=== PATIENT | male | born 1965 | race Caucasian/White ===

== ENCOUNTER → 2016-10-30 | Outpatient (CLI) | payer OTHER ==
--- NOTE | 2016-10-30 16:48 | CONS ---
CONSULTATION REASON FOR EVALUATION: Obstructive sleep apnea. This is a 51-year-old male patient with loud snoring, witnessed apneas, excessive fatigue and sleepiness during the day, chronic hypersomnia and increased risk of falling asleep while driving his vehicle. The patient drives back and forth to [place] due to work, and at times he gets very drowsy; on a few occasions he has to pull off the road due to concerns about falling asleep. He sleeps on his side, unable to sleep on his back. He has gained a significant amount of weight over the years and is morbidly obese. No sleepwalking or sleeptalking. No parasomnias. No sleep paralysis. No hallucinations. No cataplexy. PAST MEDICAL HISTORY: 1. Morbid obesity. 2. Hypertension. 3. Gout. 4. Obesity. PAST SURGICAL HISTORY: Past surgical history includes: 1. Tonsillectomy. 2. Repair of a deviated nasal septum. DRUG ALLERGIES: DOXYCYCLINE. OUTPATIENT MEDICATION: Outpatient medications include: 1. Lisinopril. 2. Allopurinol. SOCIAL HISTORY: Nonsmoker. No history of alcoholism. No history of IV drugs. FAMILY HISTORY: Two of his siblings have obstructive sleep apnea, and they are on treatment. REVIEW OF SYSTEMS: CONSTITUTIONAL: Obesity with significant amount of weight gained; 60 pounds over the past 5 years. HEENT: Loud snoring along with oral breathing rather than nasal breathing. He has had previous sinus surgery. CARDIOVASCULAR: Negative for any angina or palpitations. PULMONARY: No cough. No sputum production. He has mild chronic exertional dyspnea. GI: Negative for nausea, vomiting, abdominal pain or GI bleed. is negative for dysuria, frequency, urgency. Musculoskeletal is positive for degenerative arthritis and gout. Skin is negative for any rashes or ulcers or wounds. Psych is negative for anxiety or bipolar disorder. Rheumatologic is negative. Hematologic negative for anemia or any blood loss. Sleep is negative for any sleepwalking or sleeptalking. No grinding of the teeth. No nocturnal arousals due to gasping for air or any choking sensation. No nocturnal heartburn. No nightmares. PHYSICAL EXAMINATION: BP is 156/96, pulse 62, respirations 18, temperature 98.0, saturation 93% on room air. Neck size 20-1/2 inches. BMI 55.2. Actual weight is 358.2. GENERAL APPEARANCE: Obese, calm, comfortable. HEENT: Short neck. Mallampati class 4. No No goiter or neck masses. Head is atraumatic, normocephalic. LUNGS: Diminished breath sounds bilaterally; otherwise clear. HEART: Sounds are regular rate and rhythm. Normal S1, S2. No S3. No S4. No murmurs. ABDOMEN: Soft, nontender. No organomegaly. No direct tenderness or rebound tenderness or guarding. EXTREMITIES: No edema. No cyanosis or clubbing. SKIN: Negative for any ulcers, wounds or cellulitis. Neuro is alert and oriented x3. No focal neurological deficit. MUSCULOSKELETAL: Negative for any joint deformities or kyphoscoliosis. IMPRESSION: 1. Obstructive sleep apnea clinically suspected. 2. Hypersomnia, chronic, with an [place] score of 9. 3. Obesity with a BMI 55.2. 4. Hypertension. 5. Gout. PLAN: 1. Very high suspicion for obstructive sleep apnea. Based on this, will proceed with a screening polysomnogram as soon as possible. 2. I asked the patient to sleep in a sidewise body position. 3. Extend sleep hours to an average of 7-8 hours of sleep every night. 4. Implement good sleep hygiene measures. 5. Limit long driving until the diagnosis of sleep apnea is established and the patient is treated accordingly. MMODL / IJN: [id number] /
== END ==
LOC: SLEEP 13:24
PROVIDERS: ATTEND Internal Medicine Critical Care Medicine
DX: G47.33 Obstructive sleep apnea (adult) (pediatric) (principal); G47.10 Hypersomnia, unspecified; E66.9 Obesity, unspecified; I10 Essential (primary) hypertension; M10.9 Gout, unspecified; Z68.43 Body mass index [BMI] 50.0-59.9, adult; Z79.899 Other long term (current) drug therapy; Z88.1 Allergy status to other antibiotic agents
CPT/HCPCS: 99211

== ENCOUNTER → 2017-03-05 | Outpatient (CLI) | payer OTHER ==
--- NOTE | 2017-03-05 17:25 | PN ---
PROGRESS NOTE This is a 52-year-old male patient coming in for a compliance check regarding obstructive sleep apnea. The patient was diagnosed having severe HERON with an AHI of 100 and currently he is using CPAP therapy at a pressure of 15 cm of water with a C- flex of 3. He is using an AirFit F20 full-face mask. His main complaint is that the headgear is causing some pain on his neck, yet for the most part he is doing very well. He is averaging around 7 to 7.2 hours of CPAP use every night and his CPAP compliancy for more than 4 hours is 25/30 days over the past 30 days. His AHI while on treatment is down to 8.6. He has no specific complaints. He is benefitting from the treatment. He is waking up much more alert and awake and he seems to be more focused towards weight loss. His weight is stable at 371. Temperature 97.8, pulse 62, respirations 16. Weight is 371. Saturation 96% on room air. BP is 151/87. GENERAL APPEARANCE: Calm, comfortable. No acute distress. Head is atraumatic, normocephalic. Neck is supple. Mallampati class IV. There is no goiter or neck mass. LUNGS: Clear to auscultation. Heart sounds are regular rate and rhythm. Normal S1, S2. No S3. No S4. No murmurs. Abdomen is soft, nontender. No organomegaly. EXTREMITIES: No edema. No cyanosis or clubbing. NEUROLOGIC: The patient is alert and oriented x3. There is a focal neurological deficit. PSYCHIATRIC: No anxiety or depression. IMPRESSION: 1. Symptomatic severe obstructive sleep apnea with an AHI of 100. The patient is being treated successfully with CPAP at a pressure of 15 cm of water. The patient is benefitting from the treatment and the patient is compliant. 2. Morbid obesity with a body mass index of 56. 3. Chronic hypersomnia, improving with CPAP therapy. 4. Gout. 5. Hypertension. PLAN: 1. Continue CPAP therapy at the same level of pressure, which is 15 cm of water. 2. The patient will be continuing the AirFit F20 full-face mask. I gave him another option, which will be the Lilo View large-sized full-face mask. 3. Encourage weight loss. 4. Implement good sleep hygiene measures. 5. See me back in the sleep center in a year's time, earlier if needed. His treatment is successful for the time being. MMODL / IJN: [id number] /
== END | disposition home or self-care (01) ==
LOC: SLEEP 14:07
PROVIDERS: ATTEND Internal Medicine Critical Care Medicine
DX: G47.33 Obstructive sleep apnea (adult) (pediatric) (principal); E66.01 Morbid (severe) obesity due to excess calories; M10.9 Gout, unspecified; I10 Essential (primary) hypertension; Z99.89 Dependence on other enabling machines and devices; Z68.43 Body mass index [BMI] 50.0-59.9, adult

== ENCOUNTER → 2018-04-15 | Outpatient (CLI) | payer OTHER ==
--- NOTE | 2018-04-15 12:05 | PN ---
PROGRESS NOTE A 53-year-old male patient coming in for annual check regarding his HERON. The patient was diagnosed having severe HERON with an AHI of 100 and he is on a CPAP pressure of 15 cm of water. Over the past 1 and he has maintained his same body weight which is around 371. No recent weight gain or weight loss. Three hundred seventy-one ohms are 371. No recent weight gain or weight loss. He has been kept on a CPAP pressure of 15 and the pressure has been unchanged for almost a year. He is still benefitting from the treatment, he wears CPAP every night. He wakes up refreshed and alert during the day. Based on the compliance data, it is obvious the patient has been using a CPAP every night without any interruption. His CPAP use for more than 4 hours is 100%. His AHI is down to 1.4 and his leak factor is 26 L/minute. Average CPAP is around 8.3 hours per night. No headaches, no nasal congestion. He is using an Lilo View full- face mask. No throat irritation, nose irritation, no skin issues locally from the mask. REVIEW OF SYSTEMS: A 12-point review of system was done and positive findings are mentioned in history of present illness. His weight has been stable. No hypersomnia, no sleepiness, no falling asleep while talking to other individual or driving. No angina, no palpitations. No shortness of breath. No chest pain. Kiron score is at 4. PHYSICAL EXAMINATION: BP 148/73, pulse 69, respirations 16, temperature 97.9, saturation 93% on room air. Height is 5, 8, weight is around 73, Kiron score is 4, BMI 56.3. GENERAL APPEARANCE: Calm, comfortable. HEAD: Atraumatic, normocephalic. NECK: Supple. No JVD. No goiter or neck masses. Mallampati class IV. LUNGS: Clear to auscultation. HEART: Sounds regular rate and rhythm. Normal S1, S2. No S3. No murmurs. ABDOMEN: Soft, nontender. No organomegaly. EXTREMITIES: No edema. No cyanosis or clubbing. NEUROLOGIC: Alert and oriented x3. No focal neurological deficits. Psychiatrically, negative for anxiety or depression. IMPRESSION: 1. Severe symptomatic obstructive sleep apnea with an AHI of 100, currently on CPAP pressure of 15 cm of water. 2. Hypersomnia, recovered. 3. Obesity with a body mass index of 56, weight is unchanged. 4. Gout. 5. Hypertension. PLAN: 1. Encourage weight loss. 2. Drop CPAP pressure to 14 cm of water. 3. Offer this patient a Dream Wear full-face mask, medium size as an alternative mask for his Lilo view. 4. Compliance data was checked, numbers are looking good. The patient is responding to treatment. Will see him back in a year's time and follow up earlier, if needed. MMODL / IJN: [id number] /
== END ==
LOC: SLEEP 10:04
PROVIDERS: ATTEND Internal Medicine Critical Care Medicine
DX: G47.33 Obstructive sleep apnea (adult) (pediatric) (principal); E66.9 Obesity, unspecified; M10.9 Gout, unspecified; I10 Essential (primary) hypertension; Z99.89 Dependence on other enabling machines and devices

== ENCOUNTER 2018-05-26 15:33 | Emergency (ER) | payer OTHER ==
[2018-05-26 15:40] VITALS: BP 121/72; PULSE 66; RESP 18; TEMP 98
[2018-05-26] MEDS ORDERED: ACET/COD 300 MG/30 MG STARTER PACK 6 TAB BTL PO STA (15:57)
[2018-05-26] MEDS ORDERED: HYDROcodone/APAP 7.5-325MG 1 EACH TAB PO ONE (15:57)
--- NOTE | 2018-05-26 16:23 | XR ---
EXAMINATION TYPE: XR knee 4V RT DATE OF EXAM: 05/26/2018 CLINICAL HISTORY: Pain from fall injury. TECHNIQUE: Three views of the right knee are obtained. Fourth sunrise view was acquired. COMPARISON: Right knee x-ray February 15, 2015. FINDINGS: There is no acute fracture/dislocation evident in right knee. Patellar articulation is wit hin normal limits on sunrise view. Mild to moderate narrowing medial tibiofemoral and patellofemoral compartments is redemonstrated. There is persistent spurring from anterior superior and anterior infe rior patella. Overlying clothing material is present distal femoral level. IMPRESSION: There is no acute fracture or dislocation in the right knee.
--- NOTE | 2018-05-26 16:31 | ED ---
General Adult HPI - General Chief complaint: Extremity Injury, Lower Stated complaint: Knee Injury Time Seen by Provider: 05/26/18 15:41 Source: patient, RN notes reviewed, old records reviewed Mode of arrival: ambulatory Limitations: no limitations - History of Present Illness Initial comments: 53-year-old male patient passed no history of gout presents to ED with right knee injury. Patient force that yesterday he was walking when he slipped on a wet floor, patient reports he caught himself in the fall. Patient at the time did not express any pain. However approximately one hour later patient began experiencing pain in the lateral aspect of his right knee. Patient did not feel any pop or any pain at the initial time of perceived injury. Patient poorly now has pain with walking, again this pain is at the lateral aspect his right knee and the LCL region. Patient denies any other complaints today. Patient reportedly made contact with orthopedic follow-up, however is unable to be seen until tomorrow, states that he is presenting to ER primary today for pain control. Systemic: Pt denies fatigue, myalgia, fever/chills, rash. Pt denies weakness, night sweats, weight loss. Neuro: Pt denies headache, visual disturbances, syncope or pre-syncope. HEENT: Pt denies ocular discharge or irritation, otalgia, rhinorrhea, pharyngitis or notable lymphadenopathy. Cardiopulmonary: Pt denies chest pain, SOB, heart palpitations, dyspnea on exertion. Abdominal/GI: Pt denies abdominal pain, n/v/d. : Pt denies dysuria, burning w/ urination, frequency/urgency. Denies new onset urinary or bowel incontinence. MSK: Pt denies myalgia, loss of strength or function in extremities. Neuro: Pt denies new onset weakness, paresthesias. - Related Data Home Medications Medication Instructions Recorded Confirmed Indomethacin [Indocin] 50 mg PO DIRECTED 02/15/15 02/15/15 Lisinopril-Hctz 20-25 mg 1 tab PO DAILY 02/15/15 02/15/15 [Zestoretic 20-25] Multivitamin [Men's Multi-Vitamin] 1 each PO DAILY 02/15/15 02/15/15 Psyllium Husk 100% [Metamucil] 6 gm PO DAILY 02/15/15 02/15/15 Previous Rx's Medication Instructions Recorded HYDROcodone/APAP 5-325MG [[place] 5] 1 each PO Q4HR PRN #20 tab 02/15/15 predniSONE 50 mg PO DAILY #5 tab 02/15/15 Allergies Allergy/AdvReac Type Severity Reaction Status Date / Time doxycycline Allergy Anaphylaxis Verified 05/26/18 15:40 Review of Systems ROS Statement: Those systems with pertinent positive or pertinent negative responses have been documented in the HPI. ROS Other: All systems not noted in ROS Statement are negative. Past Medical History Past Medical History: Hypertension Additional Past Medical History / Comment(s): gout History of Any Multi-Drug Resistant Organisms: None Reported Past Surgical History: Tonsillectomy Additional Past Surgical History / Comment(s): eye sx, deviated septum repair Past Psychological History: No Psychological Hx Reported Smoking Status: Never smoker Past Alcohol Use History: Occasional Past Drug Use History: None Reported General Exam - General Exam Comments Initial Comments: Constitutional: NAD, AOX3, Pt has pleasant affect. HEENT: NC/AT, trachea midline, neck supple, no lymphadenopathy. Posterior pharynx non erythematous, without exudates. External ears appear normal, without discharge. Mucous membranes moist. Eyes PERRLA, EOM intact. There is no scleral icterus. No pallor noted. Cardiopulmonary: RRR, no murmurs, rubs or gallops, no JVD noted. Lungs CTAB in anterior and posterior nj. No peripheral edema. Abdominal exam: Abdomen soft and non-distended. Abdomen non-tender to palpation in all 4 quadrants. Bowel sounds active in LLQ. No hepatosplenomegaly. No ecchymosis Neuro: CN II-XII grossly intact. No nuchal rigidity. MSK: Right knee nontender to palpation. Mild amount of edema noted. No ecchymoses. Full active range of motion. Distal pulses intact and equal. No posterior calf tenderness bilaterally, homans sign negative bilaterally. Posterior tibialis and radial pulse +2 bilaterally. Sensation intact in upper and lower extremities. Full active ROM in upper and lower extremities, 5/5 stregnth. Limitations: no limitations Course Vital Signs 05/26/18 15:37 Temperature 98.0 F Pulse Rate 66 Respiratory 18 Rate Blood Pressure 121/72 O2 Sat by Pulse 100 Oximetry Medical Decision Making - Medical Decision Making 53-year-old male patient passed no history of gout presents to ED with right knee injury. Patient force that yesterday he was walking when he slipped on a wet floor, patient reports he caught himself in the fall. Patient at the time did not express any pain. However approximately one hour later patient began experiencing pain in the lateral aspect of his right knee. Patient did not feel any pop or any pain at the initial time of perceived injury. Patient poorly now has pain with walking, again this pain is at the lateral aspect his right knee and the LCL region. Patient denies any other complaints today. Patient reportedly made contact with orthopedic follow-up, however is unable to be seen until tomorrow, states that he is presenting to ER primary today for pain control. Patient vital signs stable, afebrile. Physical exam displayed: Right knee nontender to palpation. Mild amount of edema noted. No ecchymoses. Full active range of motion. Distal pulses intact and equal. Plain film of right knee didn't display any acute process. Patient pain control in the ER. Patient placed in the immobilizer. Patient follow up with orthopedic consult tomorrow. Patient not to bear weight on knee until follow-up. Patient to return to ER if condition worsens. Patient not driving home. Case discussed with Dr. King. Disposition Clinical Impression: Knee sprain Disposition: HOME SELF-CARE Condition: Stable Instructions (If sedation given, give patient instructions): Knee Sprain (ED) Additional Instructions: Patient to adhere to previously discussed treatment plan and will take medication(s) as directed. Patient to follow up with PCP in 1-2 days. Patient to return to ED if symptoms do not improve. Please follow-up with orthopedic consult tomorrow. Dizziness bear weight on right knee until orthopedic follow-up. Please use crutches. They do not drive if taking pain medication. Is patient prescribed a controlled substance at d/c from ED?: No Referrals: Jose Luis Garcia MD [Primary Care Provider] - 1-2 days Ronnie Valdes MD [Medical Doctor] - 1-2 days
== END 2018-05-26 16:49 | disposition home or self-care (01) ==
LOC: EC 15:33
DX: S83.91XA Sprain of unspecified site of right knee, initial encounter (principal); I10 Essential (primary) hypertension; Z79.899 Other long term (current) drug therapy; Z88.1 Allergy status to other antibiotic agents; W01.0XXA Fall on same level from slipping, tripping and stumbling without subsequent striking against object, initial encounter; Y93.01 Activity, walking, marching and hiking
CPT/HCPCS: 73564; 99284; L1830

== ENCOUNTER → 2018-05-28 | Outpatient (CLI) | payer OTHER ==
--- NOTE | 2018-05-29 07:24 | MR ---
EXAMINATION TYPE: MR knee RT wo con DATE OF EXAM: 05/28/2018 COMPARISON: Right knee x-ray from 2 days ago. HISTORY: Rt knee pain, S/P fall injury. Evaluate medial meniscal tear and effusion per order. TECHNIQUE: Multiplanar, multisequence images of the knee is performed without IV contrast. FINDINGS: Exam slightly suboptimal secondary to patient's large body habitus. MEDIAL MENISCUS: Anterior horn is intact without tear. Oblique signal posterior horn extends to infer ior meniscal surface sagittal image 8 LATERAL MENISCUS: Anterior and posterior horns are intact without tear. CRUCIATE LIGAMENTS: The anterior and posterior cruciate ligaments are intact and unremarkable. COLLATERAL LIGAMENTS: The medial collateral ligament and lateral collateral ligament complex are inta ct and unremarkable. EXTENSOR MECHANISM: Visualized quadriceps and patellar tendons are intact. Spurring from the anterior superior patella at distal quadriceps tendon attachment is seen. EFFUSION: There is moderate to large suprapatellar joint effusion suggestion of synovitis. POPLITEAL CYST: No popliteal/rosenbaum cyst. TRICOMPARTMENT SPACES: Mild to moderate narrowing patellofemoral and medial tibiofemoral compartments is seen. No significant spurring is present. CARTILAGE: There is some cartilaginous loss medial tibiofemoral compartment. No significant chondroma lacia patella. BONE MARROW SIGNAL: No focal abnormal marrow signal is appreciated. OTHER: No additional significant abnormality is appreciated. IMPRESSION: 1. Oblique full-thickness tear posterior horn of medial meniscus. 2. Mild to moderate tricompartment degenerative changes most prominent medial tibiofemoral and patell ofemoral compartments. 3. Moderate to large suprapatellar joint effusion with suggestion of synovitis.
== END ==
LOC: RADMRIMAIN 21:35
PROVIDERS: ATTEND Orthopaedic Surgery Sports Medicine
DX: S83.241A Other tear of medial meniscus, current injury, right knee, initial encounter (principal); M17.11 Unilateral primary osteoarthritis, right knee

== ENCOUNTER 2018-06-18 11:22 | Day surgery (SDC) | payer OTHER ==
[2018-06-16 15:45] VITALS: BMI 51.7
[~2018-06-18 11:22] MED LIST: DEXAMETHASONE SOD PHOSPHATE 10 MG/ML 1 ML VIAL IV ONE; HYDROmorphone 0.5 MG/0.5 ML SYRINGE IVP PRN; LACTATED RINGERS 1,000 ML IV SCH; LIDOCAINE 1% 20 ML VIAL (10MG/ML) FOR IV START INTRADERMA PRN; MIDAZOLAM (PF) 2 MG/2 ML VIAL IV PRN; ONDANSETRON 4 MG/2 ML VIAL IVP ONE; SCOPOLAMINE 1.5MG/72HR PATCH TRANSDERM ONE; ceFAZolin 3 GM in SODIUM CHLORIDE 0.9% 100 ML IVPB ONE
[2018-06-18] MEDS ORDERED: BUPIVACAINE-EPI 0.5%-1:200,000 10 ML VIAL INTRAARTIC ONE (12:52)
[2018-06-18] MEDS ORDERED: MIDAZOLAM 2 MG/2 ML VIAL ONE (12:54)
[2018-06-18] MEDS ORDERED: SUCCINYLCHOLINE CHLORIDE VIAL 200 MG/10 ML VIAL IV ONE (12:54)
[2018-06-18] MEDS ORDERED: KETOROLAC 30 MG/ML 1 ML VIAL ONE (12:54)
[2018-06-18] MEDS ORDERED: PROPOFOL 10 MG/ML 20 ML VIAL IV ONE (12:54)
[2018-06-18] MEDS ORDERED: LIDOCAINE 1% INJ 10MG/ML (20 ML MDV) ONE (12:54)
[2018-06-18] MEDS ORDERED: fentaNYL (PF) 50 MCG/ML 2 ML AMP ONE (12:54)
[2018-06-18 14:16] VITALS: TEMP 98
[2018-06-18] MEDS ORDERED: HYDROcodone/APAP 5-325MG 1 EACH TAB PO ONE (15:25)
[2018-06-18 16:22] VITALS: RESP 20
[2018-06-18 16:31] VITALS: BP 102/66; PULSE 63
--- NOTE | 2018-06-18 20:25 | OP ---
OPERATIVE REPORT DATE OF PROCEDURE: 06/18/2018. PREOPERATIVE DIAGNOSIS: Right knee medial meniscus tear. POSTOPERATIVE DIAGNOSES: 1. Right knee posterior horn medial meniscus tear. 2. Right knee lateral meniscus tear. 3. Right knee thickened infrapatellar medial shelf plica. PROCEDURE PERFORMED: 1. Right knee arthroscopic partial medial meniscectomy. 2. Right knee arthroscopic partial lateral meniscectomy. 3. Right knee arthroscopic lysis of adhesions. SURGEON: Adal Horton M.D. ANESTHESIA: General endotracheal. ESTIMATED BLOOD LOSS: Was minimal. TOURNIQUET: None. DRAINS: None. COMPLICATIONS: None apparent. DISPOSITION: Postanesthesia care unit. INDICATIONS: Bobby is a very pleasant 53-year-old male who had a twisting injury to his right knee. Physical examination and MRI are consistent with tearing of the posterior horn of the medial meniscus. A long discussion with him with regard to treatment options. At this point, he does wish to proceed with operative intervention. Risks were explained to the patient which include, but are not limited to risk of infection, nerve damage, bleeding, pain, and a small risk of deep vein thrombosis which could lead to fatal pulmonary emboli. The patient understands these risks and wished to proceed with surgical procedure. Examination under anesthesia: Range of motion, right full, left full. Effusion: Right mild, left none. Munir right with good end point. Left with good end point. Pivot shift right grade 0, left grade 0. Posterior drawer right normal with good end point, Left normal good end point. Varus laxity right none, left none. Valgus laxity right none, left none. External rotation right normal, left normal. ARTHROSCOPIC FINDINGS: Suprapatellar pouch was normal. Medial gutter thickened medial shelf plica. Lateral gutters normal. Patella diffuse grade 1-2 change of the patella, trochlea, grade 3 change of the central aspect of the trochlea. Patellar tracking is normal. Medial femoral condyle area of grade 2 change of the weightbearing surface of medial femoral condyle. Medial tibial plateau. Diffuse grade 1 change. Medial meniscus complex tear of the posterior horn of the medial meniscus. Lateral femoral condyle normal chondral surfaces lateral tibial plateau. Mild grade 1 change, lateral meniscus he had white white tearing of the middle body of the lateral meniscus. Anterior cruciate ligament intact. Posterior cruciate ligament normal. Infrapatellar notch thickened infrapatellar plica. DETAILS OF THE PROCEDURE: The patient identified in the preoperative holding area. Surgical site was marked by both the patient and myself. He was given 3 g of Ancef IV for prophylactic purposes. He was then transported to the operative suite. He was placed supine on the operative table. A general anesthetic was then administered and dosed per the anesthesia without apparent complication. Examination under anesthesia was then performed of both knees. The findings noted above. The patient's right lower extremity was then prepped and draped in usual sterile fashion. Standard surgical pause undertaken to ensure that we were operating on the correct site and that appropriate preoperative antibiotics were given. All staff in the room were in agreement and we proceeded. The knee was then insufflated with 120 mL sterile saline solution. This was done to gradually distend the joint. Inferolateral portal was then made. A 30 degree arthroscope was introduced into the suprapatellar pouch. The arthroscopic pump pressure was set to 60 mmHg and maintained at that level throughout the entire case. Next utilizing an 18-gauge spinal needle topical localized placement, the inferomedial port was made under direct visualization. Standard diagnostic arthroscopy of the knee was then performed. Findings noted above. Attention was then drawn to the infrapatellar notch. Very thickened infrapatellar plica. This was released with a biter, debrided back to stable tissue utilizing synovial shaver. Attention was drawn to the lateral compartment. He had a degenerative tear of the white-white zone of the middle body of the lateral meniscus. This was deemed irreparable. The meniscus tear was then debrided with a combination of biters and a shaver back to stable tissue. Approximately 75% of the middle body of the lateral meniscus remained intact after debridement. The anterior and posterior horns and root attachments were intact. Attention brought to the medial compartment of the knee. A complex tear of the posterior horn of the medial meniscus. It was a radial tear with a large flap tear component to it as well. It was very unstable and also deemed irreparable. The meniscus tear was then debrided with a combination of biters and a shaver back to stable tissue. Approximately 50% of the posterior horn of the medial meniscus remained intact after debridement. The arthroscope was then placed medial to the posterior cruciate ligament through the notch and the posterior medial compartment of the knee. No residual flap tears or loose bodies noted. The posterior root attachment was carefully inspected and found to be intact. At this point in time, no further work was deemed necessary. The knee was thoroughly irrigated and drained outflow cannula. The arthroscope was removed from the knee. The arthroscopic portals were then closed with 3-0 nylon interrupted suture. Sterile compressive dressing was then applied. All sponge and needle counts were deemed correct prior to closure. The patient tolerated the procedure without apparent complication. He was transferred recovery room in stable condition. MMODL / IJN: [id number] /
== END 2018-06-18 17:03 | disposition home or self-care (01) ==
LOC: OR 11:22
PROVIDERS: ATTEND Orthopaedic Surgery Sports Medicine
DX: S83.232A Complex tear of medial meniscus, current injury, left knee, initial encounter (principal); S83.281A Other tear of lateral meniscus, current injury, right knee, initial encounter; X50.1XXA Overexertion from prolonged static or awkward postures, initial encounter; M67.51 Plica syndrome, right knee; I10 Essential (primary) hypertension; E78.5 Hyperlipidemia, unspecified; Z88.1 Allergy status to other antibiotic agents; Z82.49 Family history of ischemic heart disease and other diseases of the circulatory system; Y92.000 Kitchen of unspecified non-institutional (private) residence as the place of occurrence of the external cause; W01.0XXA Fall on same level from slipping, tripping and stumbling without subsequent striking against object, initial encounter; Z79.899 Other long term (current) drug therapy; Z79.891 Long term (current) use of opiate analgesic
CPT/HCPCS: 29880; J2250; J0330; J1100; J2405; J2001; J3010; J1885; J2704; J1170

== ENCOUNTER → 2019-04-14 | Outpatient (CLI) | payer OTHER ==
--- NOTE | 2019-04-14 21:53 | PN ---
PROGRESS NOTE Mr. Rosales is 53, coming in for a compliance check regarding obstructive sleep apnea. I diagnosed this patient having severe obstructive sleep apnea a few years back and his AHI was 100. On today's evaluation, the patient has gained significant amount of weight in the order of 18 pounds. Current BMI is up to 59.1. Nevertheless CPAP therapy continues to be successful. He is using a Dream Wear under the nose and he wants to go back to his Lilo View full-face mask. A prescription was given out in that regard. His CPAP pressures are at 14 cm of water and at this level of pressure, the patient has been extremely compliant, averaging around 8.8 hours of CPAP use per night and CPAP use for more than 4 hours 100% and his AHI is down to 1.0. His leak around 22 L/minute. The patient has no specific complaints. His blood pressure is under good control. He has taken his and amlodipine for BP control. Unfortunately his weight is up and he was made aware of that. No other significant events over the past 1 year. REVIEW OF SYSTEMS: Fourteen-point review of system was done and there was no significant abnormalities or changes other than his weight gain which is in the order of 18 pounds. No major somnolence or sleepiness during the day. No angina. No palpitations. No heartburn. No chest pain. No shortness of breath. No falls. No motor vehicle accident because of feeling drowsy or sleepy. PHYSICAL EXAMINATION: VITAL SIGNS: BP is 157/86, pulse 69, respirations 18, temperature 97.4, saturation 94% on room air. Height is 5 feet 8 inches, weight is 389, and Zearing score is 6 with a BMI of 59.1. GENERAL APPEARANCE: Calm comfortable. Head is atraumatic, normocephalic. NECK: Supple. There is no JVD. No goiter or neck masses. Mallampati class IV. LUNGS: Clear to auscultation. HEART: Heart sounds are regular rate and rhythm. Normal S1, S2. No murmurs. ABDOMEN: Soft, nontender. No organomegaly. EXTREMITIES: No edema. No cyanosis or clubbing. NEUROLOGIC: He is awake and alert. There are no focal neurological deficits. PSYCHIATRIC: Negative for anxiety or depression. SKIN is negative for any wounds or ulceration. IMPRESSION: 1. Severe obstructive sleep apnea with an AHI of 100 currently on CPAP pressure of 14 cm of water. 2. Morbid obesity with interval weight gain. Current BMI is 59 with a weight of 389. 3. Hypersomnia improved. The patient continues to receive successful CPAP therapy. 4. Hypertension with adequate control of blood pressure. Currently on a combination of lisinopril and metoprolol. 5. Hyperuricemia. PLAN: 1. Weight loss. 2. Sleep hygiene measures. 3. Continue CPAP at a pressure of 14. 4. Order Lilo View large size full-face mask to replace his Dreamwear full-face mask. We will continue to follow. MMODL / IJN: [id number] /
== END | disposition home or self-care (01) ==
LOC: SLEEP 14:54
PROVIDERS: ATTEND Internal Medicine Critical Care Medicine
DX: G47.33 Obstructive sleep apnea (adult) (pediatric) (principal); E66.01 Morbid (severe) obesity due to excess calories; Z68.43 Body mass index [BMI] 50.0-59.9, adult; I10 Essential (primary) hypertension; E79.0 Hyperuricemia without signs of inflammatory arthritis and tophaceous disease; Z99.89 Dependence on other enabling machines and devices

== ENCOUNTER → 2020-05-17 | Outpatient (CLI) | payer OTHER ==
--- NOTE | 2020-05-17 11:57 | PN ---
PROGRESS NOTE This is a progress note from sleep center. A 55-year-old male patient coming in for an annual check regarding his HERON. He has a case of severe HERON with an AHI of 100 and the patient is currently on CPAP pressure of 14 cm of water. Since his last evaluation, the patient has lost around 35 pounds. He is currently following with a front end drupal developer and he has made a major change in his diet and subsequently he has lost considerable amount of weight and he is currently down to 356 pounds. Doing well. No specific complaints. Sleep quality is excellent. He is averaging around 6.5 hours of CPAP use per night. CPAP use for more than 4 hours is 100%. Leak is at 10 L/minute and his AHI is down to 1.0. BP is slightly elevated on today's evaluation and has been persistent elevated and he has been made note of that. He is taking currently on a combination of lisinopril hydrochlorothiazide 20/25 one tab a day and Norvasc 5 mg p.o. daily. No hypersomnia or sleepiness. Arnold score is currently at 3. No snoring while on the CPAP. He is using an Lilo View full-face mask. He is going to bed around 10 p.m., waking up at 4:30 a.m. in the morning. He does not take any naps during the day. REVIEW OF SYSTEMS: Fourteen-point review of system was done. Positive findings are mentioned in history of present illness. MEDICATIONS: Medications include lisinopril hydrochlorothiazide 25/25 one tab a day, Norvasc 5 mg p.o. daily, enalapril 10 mg p.o. daily. SOCIAL HISTORY: Nonsmoker. No history of alcoholism. No history of IV drugs. PHYSICAL EXAMINATION: VITAL SIGNS: BP is 162/91, pulse 71, respirations 16, temperature 98.3, saturation 95% on room air. Height is 5 feet 8 inches. Weight is 356, Arnold score is a 3 with a BMI of 54.1. GENERAL APPEARANCE: Calm, comfortable. HEAD: Atraumatic, normocephalic. NECK: Supple. No JVD. No goiter or neck mass. Mallampati class 4. LUNGS: Diminished otherwise clear. HEART: Heart sounds are regular rate and rhythm. Normal S1, S2. No S3, S4. No murmurs. ABDOMEN: Soft, nontender. No organomegaly. EXTREMITIES: No edema. No cyanosis or clubbing. IMPRESSION: 1. Severe obstructive sleep apnea with an AHI of 100, currently on CPAP pressure of 14. Treatment remains successful. 2. Obesity with significant weight loss more than 30 pounds, current body mass index is 54 and current weight is down to 356. 3. Hypersomnia recovered. Arnold score is at 3. 4. Hypertension. 5. Gout. PLAN: 1. Encourage further weight loss. 2. Keep CPAP pressure at the level of 14 with a C-flex of 3 and Lilo View full-face mask. 3. Compliance data was checked. Encourage further weight loss. The patient's sleep hygiene measures are all adequate. 4. See me back in a year's time in followup, earlier if needed. 5. Treatment is successful. Refills will be given. MMHEATHERL / JEREMY: [id number] /
== END ==
LOC: SLEEP 11:05
PROVIDERS: ATTEND Internal Medicine Critical Care Medicine
DX: G47.33 Obstructive sleep apnea (adult) (pediatric) (principal); E66.9 Obesity, unspecified; Z68.43 Body mass index [BMI] 50.0-59.9, adult; I10 Essential (primary) hypertension; M10.9 Gout, unspecified; Z99.89 Dependence on other enabling machines and devices

== ENCOUNTER → 2021-05-23 | Outpatient (CLI) | payer OTHER ==
--- NOTE | 2021-05-23 13:59 | P.PN ---
Subjective Progress Note Date: 05/23/21 56-year-old male patient with known history of severe obstructive sleep apnea. The patient carries an AHI of 100. The patient was managing to lose weight. He did lose 35 pounds on last year's evaluation. He is up in his weight again by around 15-20 pounds and is currently 371 pounds. Heis using his CPAP and is currently at a pressure of 14 cm of water. Based on the compliance evaluation that was done over the past 30 days, the patient has been utilizing his machine every night without any interruption in his achieving more than 4 hours 100% of the time. His average CPAP usage is around 7.9 hours per night and the leak is minimal in the order of 5-10 L per minute and his AHI is down to 1.0. His BP was noted to be elevated and this is typical knowing that he had the same issue during his last evaluation. His current [place] scores of 4. 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 No naps during the day. No morning headaches. No shortness of breath or chest pain. His BP is elevated. Pulse ox 96% on room air oxygen. Noted the patient is using an Amaraviewfullface mask large size. He maintains a regular sleep schedule. No new onset medical problems and comorbidities Medications The patient is currently on lisinopril hydrochlorothiazide 25/25 one tablet a day enalapril 10 mg by mouth daily and Norvasc 5 mg by mouth daily Social history he is a nonsmoker, no cervical alcoholism, most of substance abuse. Objective - Exam bP is 160/96, pulse is 75, respirations 16, temperature is 96.2, oxygen saturations around 96% and the patient has an [place] score of 4. The patient's body mass index is 56.4 Gen. appearance, comfortable, morbidly obese, nonacute distress The patient appeared well nourished and normally developed. Vital signs as documented. Head exam is unremarkable. No scleral icterus or corneal arcus noted. Neck is without jugular venous distension, thyromegaly, or carotid bruits. Carotid upstrokes are brisk bilaterally. the patient has a Mallampati class IV.Lungs are clear to auscultation and percussion. Cardiac exam reveals the PMI to be normally sized and situated. Rhythm is regular. First and second heart sounds normal. No murmurs, rubs or gallops. Abdominal exam reveals normal bowel sounds, no masses, no organomegaly and no aortic enlargement. Extremities are nonedematous and both femoral and pedal pulses are normal.Examination of the skin revealed no evidence of significant rashes, suspicious appearing nevi or other concerning lesions.Neurologically, the patient is awake and alert and the patient does not have any focal neurological deficit. Cranial nerves are essentially intact. Assessment and Plan Plan: 1 severe symptomatic obstructive sleep apnea with an AHI of 100, currently on CPAP at a pressure of 14 cm of water 2 obesity with interval weight gain and the patient's body mass index is 56.4 and his weight is up to 371 pounds 3 hypersomnia improved and the patient's [place] score is down to 4 4 hypertension, still under suboptimal control despite being on 3 different antihypertensive medication, would like to follow-up with his primary care physician 5 gout Plan I checked the patient's CPAP compliancy data, the numbers are all adequate I am suggesting to continue CPAP therapy the same level of pressures which is 14 cm of water Refillhis supplies including an Amaraview fullface mask large size Encourage weight loss Salt restriction Continue antihypertensive medication Follow-up blood pressure monitor the blood pressure control and reported to the primary care physician. The patient is to establish a tighter blood pressure control maintain an aggressive schedule See me back in one year's time in follow-up.
== END ==
LOC: SLEEP 13:13
PROVIDERS: ATTEND Internal Medicine Critical Care Medicine
DX: G47.33 Obstructive sleep apnea (adult) (pediatric) (principal); Z68.43 Body mass index [BMI] 50.0-59.9, adult; Z99.89 Dependence on other enabling machines and devices; I10 Essential (primary) hypertension; M10.9 Gout, unspecified; E66.01 Morbid (severe) obesity due to excess calories; Z88.1 Allergy status to other antibiotic agents

== ENCOUNTER 2022-02-22 07:12 | Day surgery (SDC) | payer OTHER ==
[2022-02-20 09:48] VITALS: BMI 50.2
[2022-02-22] MEDS ORDERED: LIDOCAINE 1% (10MG/ML) FOR IV START INTRADERMA PRN (07:24)
[2022-02-22] MEDS ORDERED: LACTATED RINGERS 1,000 ML IV SCH (07:24)
[2022-02-22] MEDS ORDERED: ONDANSETRON 4 MG/2 ML VIAL IVP PRN (07:24)
[2022-02-22 07:28] VITALS: RESP 16; TEMP 97.3
[2022-02-22 07:39] LABS: Glucose,Whole Blood 131 mg/dL (70-110)
[2022-02-22] MEDS ORDERED: PROPOFOL 10 MG/ML 20 ML VIAL IV ONE (08:07)
[2022-02-22] MEDS ORDERED: LIDOCAINE 2% INJ 20 MG/ML (2 ML VIAL) ONE (08:07)
--- NOTE | 2022-02-22 08:09 | P.GSHP ---
History of Present Illness H&P Date: 02/22/22 Chief Complaint: Screening colonoscopy This a 57-year-old male who presents today for screening colonoscopy. Patient denies a significant GI. His last colonoscopy was over 10 years ago. Past Medical History Past Medical History: Diabetes Mellitus, Hypertension Additional Past Medical History / Comment(s): gout, morbid obesity History of Any Multi-Drug Resistant Organisms: None Reported Past Surgical History: Orthopedic Surgery, Tonsillectomy Additional Past Surgical History / Comment(s): eye sx, deviated septum repair, right knee arthroscopic surgery Past Anesthesia/Blood Transfusion Reactions: No Reported Reaction Past Psychological History: No Psychological Hx Reported Smoking Status: Never smoker Past Alcohol Use History: Occasional Past Drug Use History: None Reported - Past Family History Sister(s) Family Medical History: Cancer Additional Family Medical History / Comment(s): colon Father Family Medical History: Cancer Additional Family Medical History / Comment(s): prostate Medications and Allergies Home Medications Medication Instructions Recorded Confirmed Type Lisinopril-Hctz 20-25 mg 1 tab PO DAILY 02/15/15 06/18/18 History [Zestoretic 20-25] Multivitamin [Men's Multi-Vitamin] 1 each PO DAILY 02/15/15 06/18/18 History Psyllium Husk 100% [Metamucil] 6 gm PO DAILY 02/15/15 06/18/18 History Dulaglutide [Trulicity] 1.5 mg SQ WEEKLY 02/20/22 02/20/22 History allopurinoL [Zyloprim] 300 mg PO DAILY 02/20/22 02/20/22 History amLODIPine [Norvasc] 10 mg PO DAILY 02/20/22 02/20/22 History metFORMIN HCL 500 mg PO BID 02/20/22 02/20/22 History Allergies Allergy/AdvReac Type Severity Reaction Status Date / Time doxycycline Allergy Anaphylaxis Verified 02/22/22 07:25 Surgical - Exam Vital Signs Temp Pulse Resp BP Pulse Ox 97.3 F L 57 L 16 160/65 95 02/22/22 07:27 02/22/22 07:27 02/22/22 07:27 02/22/22 07:27 02/22/22 07:27 - General well developed, well nourished, no distress - Eyes PERRL - ENT normal pinna - Neck no masses - Respiratory normal expansion - Cardiovascular Rhythm: regular - Abdomen Abdomen: soft, non tender Results - Labs Abnormal Lab Results - Last 24 Hours (Table) 02/22/22 Range/Units 07:35 POC Glucose (mg/dL) 131 H (70-110) mg/dL Assessment and Plan Assessment: We'll perform screening colonoscopy
--- NOTE | 2022-02-22 08:18 | P.OP ---
Date of Procedure: 02/22/22 Preoperative Diagnosis: Screening colonoscopy Postoperative Diagnosis: Normal colonoscopy to transverse colon Very poor colonic prep with a large amount of solid stool in the colon Procedure(s) Performed: Colonoscopy Anesthesia: MAC Surgeon: Jason Houser Pathology: none sent Condition: stable Disposition: PACU Description of Procedure: The patient's placed on the endoscopy table in the lateral position. He received IV sedation. Digital rectal exam was performed. This revealed no ebonized. The flexible colonoscope was then placed patient anus and passed throughout the colon. The patient had a large amount of solid stool in the colon. The scope was advanced to the level of the transverse colon. Due to the poor colonic prep the scope could not be advanced any further. This point scope withdrawn. The visualized colon appeared normal. However the view was quite limited due to the poor colonic prep. The distal transverse colon, descending colon and sigmoid colon and rectum appeared normal however the view was quite limited. Scope withdrawn for patient. Patient will need to be reprepped for colonoscopy to evaluate the right colon.
[2022-02-22 08:43] VITALS: BP 151/90; PULSE 65
== END 2022-02-22 09:06 | disposition home or self-care (01) ==
LOC: ORWHC2ENDO 07:12
PROVIDERS: ATTEND Surgery
DX: Z12.11 Encounter for screening for malignant neoplasm of colon (principal); I10 Essential (primary) hypertension; E11.9 Type 2 diabetes mellitus without complications; G47.33 Obstructive sleep apnea (adult) (pediatric); Z99.89 Dependence on other enabling machines and devices; M10.9 Gout, unspecified; Z79.84 Long term (current) use of oral hypoglycemic drugs; Z79.891 Long term (current) use of opiate analgesic; Z79.899 Other long term (current) drug therapy; Z79.01 Long term (current) use of anticoagulants; Z88.1 Allergy status to other antibiotic agents; Z80.42 Family history of malignant neoplasm of prostate; Z98.890 Other specified postprocedural states; E66.01 Morbid (severe) obesity due to excess calories
CPT/HCPCS: 45378; J2704; J2001; G0121

== ENCOUNTER 2022-07-14 23:11 | Inpatient (IN) | payer OTHER ==
[2022-07-14] MEDS ORDERED: AZITHROMYCIN 500 MG TAB PO STA (23:57)
--- NOTE | 2022-07-14 23:59 | ED ---
General Adult HPI - General Chief complaint: Upper Respiratory Infection Stated complaint: fever Time Seen by Provider: 07/14/22 23:47 Source: patient Mode of arrival: ambulatory Limitations: no limitations - History of Present Illness Initial comments: Patient is a 57-year-old male presents to the emergency department for evaluation of fever. Patient has had fever, productive cough, and congestion since yesterday morning. states she took patient's temperature in his ear which was 104F and prompted her to bring him to the emergency department. Patient took tylenol at 4:30 today. He denies chest pain shortness of breath. Denies history of COPD and asthma. He is a nonsmoker. No nausea or vomiting. - Related Data Home Medications Medication Instructions Recorded Confirmed Lisinopril-Hctz 20-25 mg 1 tab PO DAILY 02/15/15 06/18/18 [Zestoretic 20-25] Multivitamin [Men's Multi-Vitamin] 1 each PO DAILY 02/15/15 06/18/18 Psyllium Husk 100% [Metamucil] 6 gm PO DAILY 02/15/15 06/18/18 Dulaglutide [Trulicity] 1.5 mg SQ WEEKLY 02/20/22 02/20/22 allopurinoL [Zyloprim] 300 mg PO DAILY 02/20/22 02/20/22 amLODIPine [Norvasc] 10 mg PO DAILY 02/20/22 02/20/22 metFORMIN HCL 500 mg PO BID 02/20/22 02/20/22 Allergies Allergy/AdvReac Type Severity Reaction Status Date / Time doxycycline Allergy Anaphylaxis Verified 07/14/22 23:18 Review of Systems ROS Statement: Those systems with pertinent positive or pertinent negative responses have been documented in the HPI. ROS Other: All systems not noted in ROS Statement are negative. Past Medical History Past Medical History: Diabetes Mellitus, Hypertension Additional Past Medical History / Comment(s): gout, morbid obesity History of Any Multi-Drug Resistant Organisms: None Reported Past Surgical History: Orthopedic Surgery, Tonsillectomy Additional Past Surgical History / Comment(s): eye sx, deviated septum repair, right knee arthroscopic surgery Past Anesthesia/Blood Transfusion Reactions: No Reported Reaction Past Psychological History: No Psychological Hx Reported Smoking Status: Never smoker Past Alcohol Use History: Occasional Past Drug Use History: None Reported - Past Family History Sister(s) Family Medical History: Cancer Additional Family Medical History / Comment(s): colon Father Family Medical History: Cancer Additional Family Medical History / Comment(s): prostate General Exam Limitations: no limitations General appearance: alert, in no apparent distress Head exam: Present: atraumatic, normocephalic, normal inspection Respiratory exam: Present: decreased breath sounds (right lower lobe). Absent: normal lung sounds bilaterally, respiratory distress, wheezes, rales, rhonchi, stridor Cardiovascular Exam: Present: regular rate, normal rhythm, normal heart sounds. Absent: systolic murmur, diastolic murmur, rubs, gallop, clicks Extremities exam: Present: normal inspection, full ROM, normal capillary refill. Absent: calf tenderness Neurological exam: Present: alert, oriented X3, CN II-XII intact Psychiatric exam: Present: normal affect, normal mood Skin exam: Present: warm, dry, intact, normal color. Absent: rash Course Vital Signs 07/14/22 07/15/22 07/15/22 23:14 00:07 02:00 Temperature 100.5 F H 102.1 F H 100.1 F H Pulse Rate 91 Respiratory 20 Rate Blood Pressure 149/81 O2 Sat by Pulse 92 L 90 L 94 L Oximetry 07/15/22 03:30 Temperature 100.1 F H Pulse Rate 73 Respiratory 22 Rate Blood Pressure 100/63 O2 Sat by Pulse 95 Oximetry Medical Decision Making - Medical Decision Making EKG taken at 2:57, interpreted by myself Normal sinus rhythm, left axis deviation Ventricular rate 71, DC interval 142, QRS duration 96, QTC 567 Was pt. sent in by a medical professional or institution (JEFF Mendenhall, NUCLEAR MEDICAL TECHNOLOGIST, urgent care, hospital, or halfway...) When possible be specific @ -No Did you speak to anyone other than the patient for history (EMS, parent, family, police, friend...)? What history was obtained from this source @ - provided history about fever Did you review nursing and triage notes (agree or disagree)? Why? @ -I reviewed and agree with nursing and triage notes Were old charts reviewed (outside hosp., previous admission, EMS record, old EKG, old radiological studies, urgent care reports/EKG's, halfway records)? Report findings @ -No old charts were reviewed Differential Diagnosis (chest pain, altered mental status, abdominal pain women, abdominal pain men, vaginal bleeding, weakness, fever, dyspnea, syncope, headache, dizziness, GI bleed, back pain, seizure, CVA, palpatations, mental health)? @ -upper respiratory infection, pneumonia, bronchitis. This is not meant to be all inclusive EKG interpreted by me (3pts min.). @ -As above X-rays interpreted by me (1pt min.). @ -Yes, showing focal area of consolidation the right lower lobe CT interpreted by me (1pt min.). @ -None done U/S interpreted by me (1pt. min.). @ -None done What testing was considered but not performed or refused? (CT, X-rays, U/S, labs )? Why? @ -None What meds were considered but not given or refused? Why? @ -None Did you discuss the management of the patient with other professionals (professionals i.e. , PA, NUCLEAR MEDICAL TECHNOLOGIST, lab, RT, psych nurse, manager social, accounts receivable executive, teacher, branch officer, case consultant)? Give summary @ -No Was smoking cessation discussed for >3mins.? @ -No Was critical care preformed (if so, how long)? @ -No Were there social determinants of health that impacted care today? How? (Homelessness, low income, unemployed, alcoholism, drug addiction, transportation, low edu. Level, literacy, decrease access to med. care, fdc, rehab)? @ -No Was there de-escalation of care discussed even if they declined (Discuss DNR or withdrawal of care, Hospice)? DNR status @ -No What co-morbidities impacted this encounter? (DM, HTN, Smoking, COPD, CAD, Cancer, CVA, ARF, Chemo, Hep., AIDS, mental health diagnosis, sleep apnea, morbid obesity)? @ -None Was patient admitted / discharged? Hospital course, mention meds given and route, prescriptions, significant lab abnormalities, going to OR and other pertinent info. @ -Patient presenting for fever and upper respiratory symptoms. Patient is not short of breath but he is hypoxic at 90% room air. He was placed on 2 L nasal cannula. Patient declining viral testing. He initially declined laboratory testing. X-ray obtained interpreted by myself/radiology showing focal consolidation in the right lower lobe. Patient then agreed to admission and f urther testing. There is mild leukocytosis at 11.5. There is also mild hypokalemia at 3.4 which was supplemented. Patient will be admitted for pneumonia with hypoxia. He was started on Rocephin and azithromycin. He is admitted in stable condition. Undiagnosed new problem with uncertain prognosis? @ -No Drug Therapy requiring intensive monitoring for toxicity (Heparin, Nitro, Insulin, Cardizem)? @ -No Were any procedures done? @ -No Diagnosis/symptom? @ -Pneumonia with hypoxia, hypokalemia Acute, or Chronic, or Acute on Chronic? @ -Acute Uncomplicated (without systemic symptoms) or Complicated (systemic symptoms)? @ -Uncomplicated Side effects of treatment? @ -No Exacerbation, Progression, or Severe Exacerbation? @ -No Poses a threat to life or bodily function? How? (Chest pain, [place], [place], pneumonia, PE, COPD, DKA, ARF, appy, cholecystitis, CVA, Diverticulitis, Homicidal, Suicidal, threat to staff... and all critical care pts) @ -No Dr. Regan is my attending - Lab Data Result diagrams: 07/15/22 02:26 07/15/22 02:26 Lab Results 07/15/22 07/15/22 Range/Units 02:26 02:26 WBC 11.5 H (3.8-10.6) k/uL RBC 5.06 (4.30-5.90) m/uL Hgb 14.0 (13.0-17.5) gm/dL Hct 41.1 (39.0-53.0) % MCV 81.3 (80.0-100.0) fL MCH 27.7 (25.0-35.0) pg MCHC 34.1 (31.0-37.0) g/dL RDW 14.6 (11.5-15.5) % Plt Count 190 (150-450) k/uL MPV 7.6 Neutrophils % 84 % Lymphocytes % 9 % Monocytes % 6 % Eosinophils % 0 % Basophils % 0 % Neutrophils # 9.6 H (1.3-7.7) k/uL Lymphocytes # 1.0 (1.0-4.8) k/uL Monocytes # 0.6 (0-1.0) k/uL Eosinophils # 0.0 (0-0.7) k/uL Basophils # 0.0 (0-0.2) k/uL Sodium 136 L (137-145) mmol/L Potassium 3.4 L (3.5-5.1) mmol/L Chloride 99 (98-107) mmol/L Carbon Dioxide 27 (22-30) mmol/L Anion Gap 10 mmol/L BUN 16 (9-20) mg/dL Creatinine 0.96 (0.66-1.25) mg/dL Est GFR (CKD-EPI)AfAm >90 (>60 ml/min/1.73 sqM) Est GFR (CKD-EPI)NonAf 88 (>60 ml/min/1.73 sqM) Glucose 141 H (74-99) mg/dL Calcium 8.9 (8.4-10.2) mg/dL Total Bilirubin 1.6 H (0.2-1.3) mg/dL AST 19 (17-59) U/L ALT 19 (4-49) U/L Alkaline Phosphatase 68 (38-126) U/L Total Protein 6.9 (6.3-8.2) g/dL Albumin 4.1 (3.5-5.0) g/dL Disposition Clinical Impression: Pneumonia, Hypokalemia, Hypoxia Disposition: HOME SELF-CARE Condition: Good Instructions (If sedation given, give patient instructions): Upper Respiratory Infection (ED) Prescriptions: Azithromycin [Zithromax Z Pack] 1 tab PO DIRECTED #6 tab Is patient prescribed a controlled substance at d/c from ED?: No Referrals: Jose Luis Garcia MD [Primary Care Provider] - 1-2 days
[2022-07-15] MEDS ORDERED: KETOROLAC 15 MG/ML 1 ML VIAL IM STA (00:03)
--- NOTE | 2022-07-15 01:29 | XR ---
EXAM: XR Chest, 2 Views CLINICAL HISTORY: fever hypoxia TECHNIQUE: Frontal and lateral views of the chest. COMPARISON: No relevant prior studies available. FINDINGS: Lungs: Focal area of consolidation in the right lower lobe. Pleural space: Unremarkable. No pneumothorax. No pleural fluid. Heart: Unremarkable. No cardiomegaly. Mediastinum: Unremarkable. Bones/joints: Unremarkable. No acute abnormalities. IMPRESSION: Focal area of consolidation in the right lower lobe.
[2022-07-15] MEDS ORDERED: SODIUM CHLORIDE 0.9% 1,000 ML IV STA (02:14)
[2022-07-15] MEDS ORDERED: AZITHROMYCIN 500 MG in SODIUM CHLORIDE 0.9% 250 ML IVPB STA (02:16)
[2022-07-15 02:56] LABS: ALT 19 U/L (4-49); AST 19 U/L (17-59); African American GFR (CKD) >90 (>60 ml/min/1.73 sqM); Albumin 4.1 g/dL (3.5-5.0); Alkaline Phosphatase 68 U/L (38-126); Anion Gap 10 mmol/L; Blood Urea Nitrogen 16 mg/dL (9-20); Calcium 8.9 mg/dL (8.4-10.2); Carbon Dioxide 27 mmol/L (22-30); Chloride 99 mmol/L (98-107); Glucose 141 mg/dL (74-99); Non-African American GFR(CKD) 88 (>60 ml/min/1.73 sqM); Potassium 3.4 mmol/L (3.5-5.1); Sodium 136 mmol/L (137-145); Total Bilirubin 1.6 mg/dL (0.2-1.3); Total Protein 6.9 g/dL (6.3-8.2)
[2022-07-15] MEDS ORDERED: POTASSIUM CHLORIDE ER 20 MEQ TAB.ER PO STA (03:02)
[2022-07-15 03:10] LABS: Basophils % (A) 0 %; Eosinophils % (A) 0 %; HCT 41.1 % (39.0-53.0); Lymphocytes % (A) 9 %; MCH 27.7 pg (25.0-35.0); MCHC 34.1 g/dL (31.0-37.0); MCV 81.3 fL (80.0-100.0); Mean Platelet Volume 7.6; Monocytes # (A) 0.6 k/uL (0-1.0); Monocytes % (A) 6 %; Neutrophils # (A) 9.6 k/uL (1.3-7.7); Neutrophils % (A) 84 %; Platelet Count 190 k/uL (150-450); RBC 5.06 m/uL (4.30-5.90); RDW 14.6 % (11.5-15.5); WBC 11.5 k/uL (3.8-10.6)
[2022-07-15] MEDS: SODIUM CHLORIDE 0.9% 1,000 ML IV SCH ×2 (03:24→16:49)
[2022-07-15] MEDS ORDERED: ACETAMINOPHEN TAB 500 MG TAB PO PRN (03:39)
[2022-07-15] MEDS: ACETAMINOPHEN TAB 325 MG TAB PO PRN ×3 (06:53→18:45)
[2022-07-15] MEDS: KETOROLAC 15 MG/ML 1 ML VIAL IVP PRN (06:56)
[2022-07-15] MEDS ORDERED: PNEUMONIA PROTOCOL UTILIZED 1 EACH MISC PO PRN (09:41)
--- NOTE | 2022-07-15 10:23 | XR ---
EXAMINATION TYPE: XR chest 2V DATE OF EXAM: 07/15/2022 COMPARISON: 07/15/2022 HISTORY: Shortness of breath TECHNIQUE: Frontal and lateral views of the chest are obtained. FINDINGS: Scattered senescent parenchymal changes noted. Hyperinflation compatible with COPD. Patchy basilar density at the lung bases may reflect atelectasis versus developing infiltrate. Heart size is stable. Mediastinal structures are stable and grossly unremarkable. No evidence for hilar prominence. Degenerative changes dorsal spine. IMPRESSION: 1. Patchy basilar density at the lung bases may reflect atelectasis versus developing infiltrate.
[2022-07-15 11:15] LABS: Glucose,Whole Blood 132 mg/dL (70-110)
[2022-07-15] MEDS: metFORMIN 500 MG TAB PO SCH ×2 (11:29→21:49)
[2022-07-15] MEDS: amLODIPine 10 MG TAB PO SCH (11:29)
[2022-07-15] MEDS: MULTIVITAMINS, THERA 1 EACH TAB PO SCH (11:29)
[2022-07-15] MEDS: PSYLLIUM HUSK 100% 6 GM PACKET PO SCH (11:29)
[2022-07-15] MEDS: allopurinoL 300 MG TAB PO SCH (11:29)
[2022-07-15] MEDS: LISINOPRIL-HCTZ 20-25 MG 1 EACH TAB PO SCH (11:42)
--- NOTE | 2022-07-15 12:18 | P.CNPUL ---
History of Present Illness Consult date: 07/15/22 Reason for consult: dyspnea History of present illness: This is a 57-year-old patient, obese with known history of obstructive sleep apnea with an AHI of 100 minutes and a CPAP therapy and compliant. The patient is also diabetic and has hypertension. He presented to the hospital because of ongoing fever. He also had a cough and chest congestion. No pleurisy or hemoptysis. Temperature was as high as 10 4F. Patient came into the emergency and the patient was hemodynamically stable with a pulse ox of 90-94% and he was placed on 2 L of oxygen by nasal cannula. The patient had further blood work that showed a WBC count is 11.5 with a hemoglobin of 14 and a platelet count of 190. Sodium is at 136 with a BUN of 16 and a creatinine of 0.9. Chest x-ray showed patchy bibasilar pulmonary infiltrates consistent with a pneumonia. The chest x-ray was reviewed. Urine analysis is not available. No dysuria fix urgency. No nausea or vomiting or abdominal pain. No altered mentation. No headaches. Covid 19 testing was negative. Influenza a and B and RSV were also negative. Currently on examination of Rocephin and Zithromax. Review of Systems Constitutional: Reports daytime sleepiness, Reports fatigue, Reports fever, Reports weakness Eyes: denies as per HPI, denies blurred vision, denies bulging eye, denies decreased vision, denies diplopia, denies discharge, denies dry eye, denies irritation, denies itching, denies pain, denies photophobia, denies loss of p eripheral vision, denies loss of vision, denies tunnel vision/blind spots Ears: deny: decreased hearing, ear discharge, earache, tinnitus Ears, nose, mouth and throat: Reports as per HPI Breasts: absent: as per HPI, gynecomastia Cardiovascular: Reports decreased exercise tolerance, Reports dyspnea on exertion Respiratory: Reports cough, Reports cough with sputum, Reports dyspnea Gastrointestinal: Reports as per HPI Genitourinary: Reports as per HPI Musculoskeletal: Reports as per HPI Musculoskeletal: absent: ankle pain, ankle stiffness, ankle swelling Integumentary: Reports as per HPI Neurological: Reports as per HPI Psychiatric: Reports as per HPI Endocrine: Reports as per HPI Hematologic/Lymphatic: Reports as per HPI Allergic/Immunologic: Reports as per HPI Past Medical History Past Medical History: Diabetes Mellitus, Hypertension, Sleep Apnea/CPAP/BIPAP Additional Past Medical History / Comment(s): gout, morbid obesity History of Any Multi-Drug Resistant Organisms: None Reported Past Surgical History: Orthopedic Surgery, Tonsillectomy Additional Past Surgical History / Comment(s): eye sx, deviated septum repair, right knee arthroscopic surgery Past Anesthesia/Blood Transfusion Reactions: No Reported Reaction Past Psychological History: No Psychological Hx Reported Smoking Status: Never smoker Past Alcohol Use History: Occasional Past Drug Use History: None Reported - Past Family History Sister(s) Family Medical History: Cancer Additional Family Medical History / Comment(s): colon Father Family Medical History: Cancer Additional Family Medical History / Comment(s): prostate Medications and Allergies Home Medications Medication Instructions Recorded Confirmed Type Lisinopril-Hctz 20-25 mg 1 tab PO DAILY 02/15/15 06/18/18 History [Zestoretic 20-25] Multivitamin [Men's Multi-Vitamin] 1 each PO DAILY 02/15/15 06/18/18 History Psyllium Husk 100% [Metamucil] 6 gm PO DAILY 02/15/15 06/18/18 History Dulaglutide [Trulicity] 1.5 mg SQ WEEKLY 02/20/22 02/20/22 History allopurinoL [Zyloprim] 300 mg PO DAILY 02/20/22 02/20/22 History amLODIPine [Norvasc] 10 mg PO DAILY 02/20/22 02/20/22 History metFORMIN HCL 500 mg PO BID 02/20/22 02/20/22 History Allergies Allergy/AdvReac Type Severity Reaction Status Date / Time doxycycline Allergy Anaphylaxis Verified 07/14/22 23:18 Physical Exam Vitals: Vital Signs Temp Pulse Pulse Resp BP BP Pulse Ox 07/15/22 07:57 101.1 F H 80 20 144/67 94 L 07/15/22 06:38 103.2 F H 85 20 121/73 96 07/15/22 04:00 99.5 F 95 07/15/22 03:30 100.1 F H 73 22 100/63 95 07/15/22 02:00 100.1 F H 94 L 07/15/22 00:07 102.1 F H 90 L 07/14/22 23:14 100.5 F H 91 20 149/81 92 L Intake and Output 07/14/22 07/15/22 07/15/22 22:59 06:59 14:59 Other: Weight 147.418 kg General appearance: alert, in no apparent distress, obese with a body mass index of 40.0 and the patient is currently on 2 L of oxygen by nasal cannula Head exam: Present: atraumatic, normocephalic, normal inspection Neck was supple and without jugular venous distension, thyromegaly, or carotid bruits. Carotids were easily palpable bilaterally. There was no adenopathy. Mallampati class 4 with significant crowding of posterior pharynx Respiratory exam: Present: decreased breath sounds (right lower lobe). Absent: normal lung sounds bilaterally, respiratory distress, wheezes, rales, rhonchi, stridor Abdominal exam revealed normal bowel sounds. The abdomen was soft, non-tender, and without masses, organomegaly, or appreciable enlargement of the abdominal aorta. Cardiovascular Exam: Present: regular rate, normal rhythm, normal heart sounds. Absent: systolic murmur, diastolic murmur, rubs, gallop, clicks Extremities exam: Present: normal inspection, full ROM, normal capillary refill. Absent: calf tenderness Neurological exam: Present: alert, oriented X3, CN II-XII intact Psychiatric exam: Present: normal affect, normal mood Skin exam: Present: warm, dry, intact, normal color. Absent: rash Results - Laboratory Findings CBC and BMP: 07/15/22 02:26 07/15/22 02:26 Abnormal lab findings: Abnormal Labs 07/15/22 07/15/22 07/15/22 02:26 02:26 11:10 WBC 11.5 H Neutrophils # 9.6 H Sodium 136 L Potassium 3.4 L Glucose 141 H POC Glucose (mg/dL) 132 H Total Bilirubin 1.6 H - Diagnostic Findings Chest x-ray: image reviewed Assessment and Plan Plan: Acute febrile illness, currently under investigation Acute bilateral pneumonia, likely community-acquired. Patient is current on examination of Rocephin and Zithromax Acute hypoxic respiratory failure currently on 2 L of oxygen by nasal cannula Obstructive sleep apnea CVA with an AHI of 119 on CPAP therapy on outpatient basis Obesity with BMI 48 Diabetes mellitus type 2 Hypertension Plan Check pro calcitonin Check urinary legionella urine antigen Check a UA and urine cultures Check blood cultures Continue Rocephin and Zithromax Resume CPAP therapy from home Monitor fever pattern Resume home medications We'll continue to follow
[2022-07-15 12:20] LABS: Appearance,Urine Clear (Clear); Bilirubin,Urine Negative (Negative); Blood,Urine Negative (Negative); Color,Urine Yellow; Glucose,Urine (UA) Negative (Negative); Ketones,Urine 1+ (Negative); Leukocyte Esterase,Urine Negative (Negative); Mucus,Urine Moderate /hpf; Nitrite,Urine Negative (Negative); PH, Urine 5.5 (5.0-8.0); Protein,Urine 2+ (Negative); RBC,Urine 1 /hpf (0-5); Specific Gravity,Urine 1.029 (1.001-1.035); Urobilinogen,Urine <2.0 mg/dL (<2.0); WBC,Urine 2 /hpf (0-5)
--- NOTE | 2022-07-15 15:32 | HP ---
HISTORY AND PHYSICAL PRESENTING COMPLAINT: Fever, chills. HISTORY OF PRESENTING ILLNESS: This is a 57-year-old gentleman with past medical history significant for obstructive sleep apnea, hypertension, diabetes, history of COVID 2 years ago with prolonged hospitalization, presented to the emergency department with complaints of fever, chest congestion. The patient said he had noted fever at home which was about 104 T-max. This has been going on for about 72 hours. The patient denies of any sick contacts. At the time of presentation in the ER, the patient was noted to be febrile; white cell count was obtained which showed WBC of 11.5, platelet count of 190; chemistry: Sodium of 126, potassium 3.4; renal function, BUN 16, creatinine 0.96. The patient was tested for influenza, RSV, and COVID, that came back negative. Serum lactic acid was 1.1, within normal limits as well. The patient had chest x-ray done at the time of admission, which showed bibasilar densities, secondary to pneumonia, consultation was obtained from Pulmonary Medicine as well since the patient was requiring oxygen 3 L; does not use oxygen at baseline. PAST MEDICAL HISTORY: Diabetes mellitus, hypertension, sleep apnea. PAST SURGICAL HISTORY: 1. Tonsillectomy. 2. Orthopedic surgery, knee surgery. 3. Nasal septum surgery. ALLERGIES: Doxycycline. SOCIAL HISTORY: Denies smoking, occasional alcohol use. Denies illicit drugs. FAMILY HISTORY: Sister had colon cancer; father had prostate cancer; mother had history of CVA. REVIEW OF SYSTEMS: A 12-point review of system was obtained, which was essentially negative except for fever, cough, chest congestion, sputum production, dyspnea, fatigue, malaise, weakness. PHYSICAL EXAMINATION: GENERAL: Alert, well oriented x3; ill appearance, obese. VITAL SIGNS: Temperature 100.5, respiration is 20, pulse is 94, blood pressure 161/74, saturation 94% on room air. HEENT: Normocephalic and atraumatic. PULMONARY: Decreased breath sounds bilaterally. Nasal cannula in place. No use of accessory muscle. CARDIOVASCULAR: Regular rate. No murmur. No lower extremity edema. ABDOMEN: Soft. Nontender. Bowel sounds present. ASSESSMENT: 1. Multifocal pneumonia. 2. Sepsis, secondary to community-acquired pneumonia. 3. Acute hypoxic respiratory failure. 4. History of obstructive sleep apnea. 5. History of morbid obesity. 6. Essential hypertension. 7. Diabetes mellitus. PLAN: 1. Continue the patient on Rocephin and azithromycin. 2. Accu-Cheks a.c. and h.s. 3. Continue the patient on metformin; we will order sliding scale insulin as well. 4. Follow up on levels. Follow up on CRP and procalcitonin level. Pulmonary Medicine consulted. Home medications reviewed and reconciled. 5. Code status: Full code. Total time spent on H and P is 40 minutes. All questions answered at bedside. MMODL / IJN: [id number] /
[2022-07-15 16:19] LABS: Glucose,Whole Blood 113 mg/dL (70-110)
[2022-07-15] MEDS: INSULIN ASPART (NovoLOG) 100 UNIT/ML VIAL SQ SCH ×2 (16:53→21:12)
[2022-07-15 21:02] LABS: Glucose,Whole Blood 147 mg/dL (70-110)
[2022-07-15] MEDS: ALBUTEROL NEBULIZED 2.5 MG/3 ML INHALATION PRN (21:08)
[2022-07-16] MEDS: SODIUM CHLORIDE 0.9% 1,000 ML IV SCH ×4 (01:08→23:40)
[2022-07-16] MEDS: ACETAMINOPHEN TAB 325 MG TAB PO PRN ×4 (03:16→21:15)
[2022-07-16 06:31] LABS: Glucose,Whole Blood 151 mg/dL (70-110)
[2022-07-16] MEDS: INSULIN ASPART (NovoLOG) 100 UNIT/ML VIAL SQ SCH ×4 (07:00→20:54)
--- NOTE | 2022-07-16 08:18 | P.PN ---
Subjective Progress Note Date: 07/16/22 Principal diagnosis: Upper respiratory infection This is a 57-year-old male who presented to the emergency room with complaints of fever, productive cough, and congestion with acute onset. Patient's fever at home was as high as 104F. Patient reports he has been doing some gardening at home, but denies any sick contacts. Chest x-ray showed patchy bibasilar pulmonary infiltrates consistent with pneumonia. He does have a history of prolonged hospitalization with complaint 2 years ago. Other medical history includes obstructive sleep apnea, hypertension, and diabetes. Pulmonology is consulted and patient id maintained on Zithromax and Rocephin. Patient is seen this morning sitting up in chair at bedside, reports he is feeling somewhat better. Objective - Vital Signs Vital signs: Vital Signs Temp 98.2 F 07/16/22 06:48 Pulse 72 07/16/22 06:48 Resp 18 07/16/22 06:48 BP 123/74 07/16/22 06:48 Pulse Ox 98 07/16/22 06:48 FiO2 Intake & Output 07/15/22 07/16/22 07/16/22 18:59 06:59 18:59 Output Total 400 400 Balance -400 -400 Weight 147.418 kg Output: Urine 400 400 Other: Voiding Method Urinal Urinal - Constitutional General appearance: Present: cooperative, no acute distress - EENT Eyes: Present: PERRLA - Neck Neck: Present: normal ROM. Absent: lymphadenopathy, rigidity - Respiratory Respiratory: bilateral: rhonchi - Cardiovascular Rhythm: regular Heart sounds: normal: S1, S2 - Gastrointestinal General gastrointestinal: Present: soft. Absent: tenderness - Integumentary Integumentary: Present: normal, normal turgor - Psychiatric Psychiatric: Present: A&O x's 3, appropriate affect, intact judgment & insight - Labs CBC & Chem 7: 07/15/22 02:26 07/15/22 02:26 Labs: Abnormal Lab Results - Last 24 Hours (Table) 07/15/22 07/15/22 07/15/22 Range/Units 11:10 11:40 16:09 POC Glucose (mg/dL) 132 H 113 H (70-110) mg/dL Urine Protein 2+ H (Negative) Urine Ketones 1+ H (Negative) Urine Mucus Moderate H (None) /hpf 07/15/22 07/16/22 Range/Units 21:01 06:30 POC Glucose (mg/dL) 147 H 151 H (70-110) mg/dL Urine Protein (Negative) Urine Ketones (Negative) Urine Mucus (None) /hpf Assessment and Plan (1) Pneumonia Current Visit: Yes Status: Acute Code(s): J18.9 - PNEUMONIA, UNSPECIFIED ORGANISM SNOMED Code(s): 533583023 (2) Hypoxia Current Visit: Yes Status: Acute Code(s): R09.02 - HYPOXEMIA SNOMED Code(s): 809872534 (3) Diabetes mellitus Current Visit: Yes Status: Acute Code(s): E11.9 - TYPE 2 DIABETES MELLITUS WITHOUT COMPLICATIONS SNOMED Code(s): 42379600 (4) Hypertension Current Visit: Yes Status: Acute Code(s): I10 - ESSENTIAL (PRIMARY) HYPERTE NSION SNOMED Code(s): 48362364 (5) Obstructive sleep apnea Current Visit: Yes Status: Acute Code(s): G47.33 - OBSTRUCTIVE SLEEP APNEA (ADULT) (PEDIATRIC) SNOMED Code(s): 38686260 Plan: Appreciate pulmonology consult. Continue Zithromax and Rocephin. Check CBC and CMP in the morning. Patient seen and evaluated by nurse practitioner, physician in agreement with plan
[2022-07-16] MEDS: ALBUTEROL NEBULIZED 2.5 MG/3 ML INHALATION PRN ×4 (08:40→20:58)
[2022-07-16 08:51] LABS: African American GFR (CKD) >90 (>60 ml/min/1.73 sqM); Anion Gap 14 mmol/L; Blood Urea Nitrogen 14 mg/dL (9-20); Calcium 8.5 mg/dL (8.4-10.2); Carbon Dioxide 24 mmol/L (22-30); Chloride 101 mmol/L (98-107); Glucose 122 mg/dL (74-99); Non-African American GFR(CKD) >90 (>60 ml/min/1.73 sqM); Sodium 139 mmol/L (137-145)
[2022-07-16 08:52] LABS: Potassium 3.4 mmol/L (3.5-5.1)
[2022-07-16] MEDS: AZITHROMYCIN 500 MG TAB PO SCH (09:09)
[2022-07-16] MEDS: MULTIVITAMINS, THERA 1 EACH TAB PO SCH (09:09)
[2022-07-16] MEDS: LISINOPRIL-HCTZ 20-25 MG 1 EACH TAB PO SCH (09:09)
[2022-07-16] MEDS: metFORMIN 500 MG TAB PO SCH ×2 (09:09→21:14)
[2022-07-16] MEDS: allopurinoL 300 MG TAB PO SCH (09:10)
[2022-07-16] MEDS: amLODIPine 10 MG TAB PO SCH (09:10)
[2022-07-16 09:16] LABS: C Reactive Protein 8.7 mg/dL (<1.0)
[2022-07-16 09:27] LABS: HCT 43.4 % (39.0-53.0); HGB 14.6 gm/dL (13.0-17.5); MCH 28.6 pg (25.0-35.0); MCHC 33.5 g/dL (31.0-37.0); MCV 85.4 fL (80.0-100.0); Mean Platelet Volume 9.8; Platelet Count 181 k/uL (150-450); RBC 5.09 m/uL (4.30-5.90); RDW 14.5 % (11.5-15.5); WBC 12.7 k/uL (3.8-10.6)
[2022-07-16] MEDS: PSYLLIUM HUSK 100% 6 GM PACKET PO SCH (09:40)
[2022-07-16 11:17] LABS: Glucose,Whole Blood 173 mg/dL (70-110)
--- NOTE | 2022-07-16 13:20 | P.PN ---
Subjective Progress Note Date: 07/16/22 This is a 57-year-old patient, obese with known history of obstructive sleep apnea with an AHI of 100 minutes and a CPAP therapy and compliant. The patient is also diabetic and has hypertension. He presented to the hospital because of ongoing fever. He also had a cough and chest congestion. No pleurisy or hemoptysis. Temperature was as high as 10 4F. Patient came into the emergency and the patient was hemodynamically stable with a pulse ox of 90-94% and he was placed on 2 L of oxygen by nasal cannula. The patient had further blood work that showed a WBC count is 11.5 with a hemoglobin of 14 and a platelet count of 190. Sodium is at 136 with a BUN of 16 and a creatinine of 0.9. Chest x-ray showed patchy bibasilar pulmonary infiltrates consistent with a pneumonia. The chest x-ray was reviewed. Urine analysis is not available. No dysuria fix urgency. No nausea or vomiting or abdominal pain. No altered mentation. No headaches. Covid 19 testing was negative. Influenza a and B and RSV were also negative. Currently on examination of Rocephin and Zithromax. The patient is seen today 07/16/2022 in follow-up on the regular medical floor. He is currently sitting up in a chair at the bedside. Awake and alert in no acute distress. Maintaining good O2 saturations in the mid 90s on 4 L/m per nasal cannula. He is afebrile. Hemodynamically stable. Utilizing his home CPAP device. White count 12.7. Hemoglobin 14.6. Sodium 139. Potassium 3.4. Bicarb 24. BUN 14. Creatinine 0.83. Glucose 122. He is continued on antibiotics in the form of ceftriaxone and azithromycin. proCalcitonin 0.22. Objective - Vital Signs Vital signs: Vital Signs Temp 101.9 F H 07/16/22 10:03 Pulse 98 07/16/22 13:08 Resp 18 07/16/22 06:48 BP 123/74 07/16/22 06:48 Pulse Ox 95 07/16/22 08:44 FiO2 Intake & Output 07/15/22 07/16/22 07/16/22 18:59 06:59 18:59 Intake Total 180 Output Total 400 400 Balance -400 -400 180 Weight 147.418 kg Intake: Oral 180 Output: Urine 400 400 Other: Voiding Method Urinal Urinal - Exam General appearance: Awake, alert, obese 57-year-old male patient with a body mass index of 48.0 and the patient is currently on 4 L of oxygen by nasal cannula Head exam: Present: atraumatic, normocephalic, normal inspection Neck was supple and without jugular venous distension, thyromegaly, or carotid bruits. Carotids were easily palpable bilaterally. There was no adenopathy. Mallampati class 4 with significant crowding of posterior pharynx Respiratory exam: Present: decreased breath sounds (right lower lobe). Absent: normal lung sounds bilaterally, respiratory distress, wheezes, rales, rhonchi, stridor Abdominal exam revealed normal bowel sounds. The abdomen was soft, non-tender, and without masses, organomegaly, or appreciable enlargement of the abdominal aorta. Cardiovascular Exam: Present: regular rate, normal rhythm, normal heart sounds. Absent: systolic murmur, diastolic murmur, rubs, gallop, clicks Extremities exam: Present: normal inspection, full ROM, normal capillary refill. Absent: calf tenderness Neurological exam: Present: alert, oriented X3, CN II-XII intact Psychiatric exam: Present: normal affect, normal mood Skin exam: Present: warm, dry, intact, normal color. Absent: rash - Labs CBC & Chem 7: 07/16/22 07:38 07/16/22 07:38 Labs: Abnormal Lab Results - Last 24 Hours (Table) 07/15/22 07/15/22 07/15/22 Range/Units 11:57 16:09 21:01 WBC (3.8-10.6) k/uL Potassium (3.5-5.1) mmol/L Glucose (74-99) mg/dL POC Glucose (mg/dL) 113 H 147 H (70-110) mg/dL C-Reactive Protein (<1.0) mg/dL Procalcitonin 0.22 H ng/mL 07/16/22 07/16/22 07/16/22 Range/Units 06:30 07:38 07:38 WBC 12.7 H (3.8-10.6) k/uL Potassium 3.4 L (3.5-5.1) mmol/L Glucose 122 H (74-99) mg/dL POC Glucose (mg/dL) 151 H (70-110) mg/dL C-Reactive Protein 8.7 H (<1.0) mg/dL Procalcitonin ng/mL 07/16/22 Range/Units 11:16 WBC (3.8-10.6) k/uL Potassium (3.5-5.1) mmol/L Glucose (74-99) mg/dL POC Glucose (mg/dL) 173 H (70-110) mg/dL C-Reactive Protein (<1.0) mg/dL Procalcitonin ng/mL Assessment and Plan Assessment: Acute febrile illness secondary to acute bilateral pneumonia Acute bilateral pneumonia, likely community-acquired. Patient is current on examination of Rocephin and Zithromax Acute hypoxic respiratory failure currently on 4 L of oxygen by nasal cannula Obstructive sleep apnea with an AHI of 119 on CPAP therapy in the outpatient basis Obesity with BMI 48 Diabetes mellitus type 2 Hypertension Plan: The patient was seen and evaluated Labs and medications reviewed Improved but not quite back to baseline Continue ceftriaxone and azithromycin Add heparin for DVT prophylaxis Titrate the FiO2 as tolerated Utilizing his home CPAP Increase his activity as tolerated We will continue to follow I have personally seen and examined the patient, performed the documentation and the assessment and plan as written. Number of minutes spent on the visit: 10.
[2022-07-16] MEDS: HEPARIN SODIUM,PORCINE/PF 5,000 UNIT/0.5 ML SYRINGE SQ SCH ×2 (16:07→23:41)
[2022-07-16 16:42] LABS: Glucose,Whole Blood 147 mg/dL (70-110)
[2022-07-16 20:53] LABS: Glucose,Whole Blood 124 mg/dL (70-110)
[2022-07-16] MEDS: ZOLPIDEM 5 MG TAB PO PRN (21:14)
[2022-07-17] MEDS: ACETAMINOPHEN TAB 325 MG TAB PO PRN ×4 (02:15→18:27)
[2022-07-17 06:06] LABS: Glucose,Whole Blood 141 mg/dL (70-110)
[2022-07-17] MEDS: INSULIN ASPART (NovoLOG) 100 UNIT/ML VIAL SQ SCH ×4 (06:10→21:04)
[2022-07-17] MEDS ORDERED: Potassium Replacement Protocol 1 EACH MISC MISCELLANE PRN ×3 (08:09→15:23)
--- NOTE | 2022-07-17 08:39 | P.PN ---
Subjective Progress Note Date: 07/17/22 Principal diagnosis: Upper respiratory infection This is a 57-year-old male who presented to the emergency room with complaints of fever, productive cough, and congestion with acute onset. Patient's fever at home was as high as 104F. Patient reports he has been doing some gardening at home, but denies any sick contacts. Chest x-ray showed patchy bibasilar pulmonary infiltrates consistent with pneumonia. He does have a history of prolonged hospitalization with complaint 2 years ago. Other medical history includes obstructive sleep apnea, hypertension, and diabetes. Pulmonology is consulted and patient id maintained on Zithromax and Rocephin. Patient is seen this morning sitting up in chair at bedside, reports he is feeling somewhat better. 07/17/22 Patient seen this morning sitting in chair at bedside. He reports he is feeling better. He did run a fever as high as 103 yesterday and this morning he is afebrile. Nursing staff is attempting to wean oxygen, patient currently on 3 L. Objective - Vital Signs Vital signs: Vital Signs Temp 98.1 F 07/17/22 07:47 Pulse 81 07/17/22 07:47 Resp 20 07/17/22 07:47 BP 120/80 07/17/22 07:47 Pulse Ox 100 07/17/22 07:47 FiO2 Intake & Output 07/16/22 07/17/22 07/17/22 18:59 06:59 18:59 Intake Total 180 Balance 180 Intake: Oral 180 Other: # Voids 4 3 # Bowel Movements 3 - Constitutional General appearance: Present: cooperative, no acute distress - EENT Eyes: Present: PERRLA - Neck Neck: Present: normal ROM. Absent: lymphadenopathy, rigidity - Respiratory Respiratory: bilateral: rhonchi (improved) - Cardiovascular Rhythm: regular Heart sounds: normal: S1, S2 - Gastrointestinal General gastrointestinal: Present: soft. Absent: tenderness - Integumentary Integumentary: Present: normal, normal turgor - Psychiatric Psychiatric: Present: A&O x's 3, appropriate affect, intact judgment & insight - Labs CBC & Chem 7: 07/16/22 07:38 07/16/22 07:38 Labs: Abnormal Lab Results - Last 24 Hours (Table) 07/15/22 07/16/22 07/16/22 Range/Units 11:57 07:38 07:38 WBC 12.7 H (3.8-10.6) k/uL Potassium 3.4 L (3.5-5.1) mmol/L Glucose 122 H (74-99) mg/dL POC Glucose (mg/dL) (70-110) mg/dL C-Reactive Protein 8.7 H (<1.0) mg/dL Procalcitonin 0.22 H ng/mL 07/16/22 07/16/22 07/16/22 Range/Units 11:16 16:40 20:51 WBC (3.8-10.6) k/uL Potassium (3.5-5.1) mmol/L Glucose (74-99) mg/dL POC Glucose (mg/dL) 173 H 147 H 124 H (70-110) mg/dL C-Reactive Protein (<1.0) mg/dL Procalcitonin ng/mL 07/17/22 Range/Units 06:05 WBC (3.8-10.6) k/uL Potassium (3.5-5.1) mmol/L Glucose (74-99) mg/dL POC Glucose (mg/dL) 141 H (70-110) mg/dL C-Reactive Protein (<1.0) mg/dL Procalcitonin ng/mL Microbiology - Last 24 Hours (Table) 07/16/22 21:20 Gram Stain - Preliminary Sputum Assessment and Plan (1) Pneumonia Current Visit: Yes Status: Acute Code(s): J18.9 - PNEUMONIA, UNSPECIFIED ORGANISM SNOMED Code(s): 779947820 (2) Hypoxia Current Visit: Yes Status: Acute Code(s): R09.02 - HYPOXEMIA SNOMED Code(s): 781733659 (3) Diabetes mellitus Current Visit: Yes Status: Acute Code(s): E11.9 - TYPE 2 DIABETES MELLITUS WITHOUT COMPLICATIONS SNOMED Code(s): 32910042 (4) Hypertension Current Visit: Yes Status: Acute Code(s): I10 - ESSENTIAL (PRIMARY) HYPERTENSION SNOMED Code(s): 56109898 (5) Obstructive sleep apnea Current Visit: Yes Status: Acute Code(s): G47.33 - OBSTRUCTIVE SLEEP APNEA (ADULT) (PEDIATRIC) SNOMED Code(s): 70961239 Plan: Appreciate pulmonology consult. Continue Zithromax and Rocephin. Check CBC and CMP in the morning. Replace potassium. Trial of weaning oxygen. decrease IV fluids to 75 mL per hour Patient seen and evaluated by nurse practitioner, physician in agreement with plan
[2022-07-17 09:07] LABS: HCT 37.7 % (39.0-53.0); HGB 12.5 gm/dL (13.0-17.5); MCH 27.7 pg (25.0-35.0); MCHC 33.2 g/dL (31.0-37.0); MCV 83.3 fL (80.0-100.0); Mean Platelet Volume 8.4; Platelet Count 150 k/uL (150-450); Poikilocytosis Slight; RBC 4.52 m/uL (4.30-5.90); RDW 14.9 % (11.5-15.5); WBC 9.9 k/uL (3.8-10.6)
[2022-07-17 09:27] LABS: ALT 28 U/L (4-49); AST 36 U/L (17-59); African American GFR (CKD) >90 (>60 ml/min/1.73 sqM); Albumin 3.4 g/dL (3.5-5.0); Albumin/Globulin Ratio 1.3; Alkaline Phosphatase 49 U/L (38-126); Anion Gap 12 mmol/L; Blood Urea Nitrogen 14 mg/dL (9-20); Calcium 8.3 mg/dL (8.4-10.2); Carbon Dioxide 26 mmol/L (22-30); Chloride 99 mmol/L (98-107); Globulin 2.6 g/dL; Glucose 158 mg/dL (74-99); Non-African American GFR(CKD) >90 (>60 ml/min/1.73 sqM); Potassium 3.3 mmol/L (3.5-5.1); Sodium 137 mmol/L (137-145); Total Bilirubin 0.9 mg/dL (0.2-1.3)
[2022-07-17] MEDS: PSYLLIUM HUSK 100% 6 GM PACKET PO SCH (09:33)
[2022-07-17] MEDS: ALBUTEROL NEBULIZED 2.5 MG/3 ML INHALATION PRN ×3 (09:37→20:24)
[2022-07-17] MEDS: HEPARIN SODIUM,PORCINE/PF 5,000 UNIT/0.5 ML SYRINGE SQ SCH ×2 (09:46→15:49)
[2022-07-17] MEDS: AZITHROMYCIN 500 MG TAB PO SCH (09:46)
[2022-07-17] MEDS: allopurinoL 300 MG TAB PO SCH (09:46)
[2022-07-17] MEDS: LISINOPRIL-HCTZ 20-25 MG 1 EACH TAB PO SCH (09:46)
[2022-07-17] MEDS: amLODIPine 10 MG TAB PO SCH (09:46)
[2022-07-17] MEDS: metFORMIN 500 MG TAB PO SCH ×2 (09:46→21:04)
[2022-07-17] MEDS: POTASSIUM CHLORIDE ER 20 MEQ TAB.ER PO SCH ×4 (09:47→17:05)
[2022-07-17] MEDS: SODIUM CHLORIDE 0.9% 1,000 ML IV SCH ×3 (09:47→21:05)
[2022-07-17] MEDS: MULTIVITAMINS, THERA 1 EACH TAB PO SCH (09:47)
[2022-07-17 11:36] LABS: Glucose,Whole Blood 163 mg/dL (70-110)
--- NOTE | 2022-07-17 13:50 | P.PN ---
Subjective Progress Note Date: 07/17/22 This is a 57-year-old patient, obese with known history of obstructive sleep apnea with an AHI of 100 minutes and a CPAP therapy and compliant. The patient is also diabetic and has hypertension. He presented to the hospital because of ongoing fever. He also had a cough and chest congestion. No pleurisy or hemoptysis. Temperature was as high as 10 4F. Patient came into the emergency and the patient was hemodynamically stable with a pulse ox of 90-94% and he was placed on 2 L of oxygen by nasal cannula. The patient had further blood work that showed a WBC count is 11.5 with a hemoglobin of 14 and a platelet count of 190. Sodium is at 136 with a BUN of 16 and a creatinine of 0.9. Chest x-ray showed patchy bibasilar pulmonary infiltrates consistent with a pneumonia. The chest x-ray was reviewed. Urine analysis is not available. No dysuria fix urgency. No nausea or vomiting or abdominal pain. No altered mentation. No headaches. Covid 19 testing was negative. Influenza a and B and RSV were also negative. Currently on examination of Rocephin and Zithromax. The patient is seen today 07/16/2022 in follow-up on the regular medical floor. He is currently sitting up in a chair at the bedside. Awake and alert in no acute distress. Maintaining good O2 saturations in the mid 90s on 4 L/m per nasal cannula. He is afebrile. Hemodynamically stable. Utilizing his home CPAP device. White count 12.7. Hemoglobin 14.6. Sodium 139. Potassium 3.4. Bicarb 24. BUN 14. Creatinine 0.83. Glucose 122. He is continued on antibiotics in the form of ceftriaxone and azithromycin. proCalcitonin 0.22. The patient is seen today 07/17/2022 in follow-up on the regular medical floor. He is currently awake and alert in no acute distress. Reclining in the recliner. Maintaining O2 saturations up to 100% on 3 L/m per nasal cannula. He remains febrile with a temperature of 103.2. Received acetaminophen. Continued on ceftriaxone and completed azithromycin. He is 0.9 normal saline at 75 ML's per hour. Heparin for DVT prophylaxis. Sputum culture is pending. White count 9.9. Hemoglobin 12.5. Sodium 137. Potassium 3.3. Bicarb 26. BUN 14. Creatinine 0.90. Glucose 158. Potassium being replaced. Objective - Vital Signs Vital signs: Vital Signs Temp 103.2 F H 07/17/22 10:13 Pulse 90 07/17/22 09:52 Resp 20 07/17/22 07:47 BP 120/80 07/17/22 07:47 Pulse Ox 100 07/17/22 09:37 FiO2 Intake & Output 07/16/22 07/17/22 07/17/22 18:59 06:59 18:59 Intake Total 180 200 Balance 180 200 Intake: Oral 180 200 Other: # Voids 4 3 # Bowel Movements 3 - Exam General appearance: Awake, obese 57-year-old male patient, body mass index of 48.0 and the patient is currently on 3 L of oxygen by nasal cannula Head exam: Present: atraumatic, normocephalic, normal inspection Neck was supple and without jugular venous distension, thyromegaly, or carotid bruits. Carotids were easily palpable bilaterally. There was no adenopathy. Mallampati class 4 with significant crowding of posterior pharynx Respiratory exam: Present: decreased breath sounds (right lower lobe). Absent: normal lung sounds bilaterally, respiratory distress, wheezes, rales, rhonchi, stridor Abdominal exam revealed normal bowel sounds. The abdomen was soft, non-tender, and without masses, organomegaly, or appreciable enlargement of the abdominal aorta. Cardiovascular Exam: Present: regular rate, normal rhythm, normal heart sounds. Absent: systolic murmur, diastolic murmur, rubs, gallop, clicks Extremities exam: Present: normal inspection, full ROM, normal capillary refill. Absent: calf tenderness Neurological exam: Present: alert, oriented X3, CN II-XII intact Psychiatric exam: Present: normal affect, normal mood Skin exam: Present: warm, dry, intact, normal color. Absent: rash - Labs CBC & Chem 7: 07/17/22 08:50 07/17/22 08:50 Labs: Abnormal Lab Results - Last 24 Hours (Table) 07/16/22 07/16/22 07/17/22 Range/Units 16:40 20:51 06:05 Hgb (13.0-17.5) gm/dL Hct (39.0-53.0) % Potassium (3.5-5.1) mmol/L Glucose (74-99) mg/dL POC Glucose (mg/dL) 147 H 124 H 141 H (70-110) mg/dL Calcium (8.4-10.2) mg/dL Total Protein (6.3-8.2) g/dL Albumin (3.5-5.0) g/dL 07/17/22 07/17/22 07/17/22 Range/Units 08:50 08:50 08:50 Hgb 12.5 L (13.0-17.5) gm/dL Hct 37.7 L (39.0-53.0) % Potassium 3.3 L 3.3 L (3.5-5.1) mmol/L Glucose 158 H (74-99) mg/dL POC Glucose (mg/dL) (70-110) mg/dL Calcium 8.3 L (8.4-10.2) mg/dL Total Protein 6.0 L (6.3-8.2) g/dL Albumin 3.4 L (3.5-5.0) g/dL 07/17/22 Range/Units 11:20 Hgb (13.0-17.5) gm/dL Hct (39.0-53.0) % Potassium (3.5-5.1) mmol/L Glucose (74-99) mg/dL POC Glucose (mg/dL) 163 H (70-110) mg/dL Calcium (8.4-10.2) mg/dL Total Protein (6.3-8.2) g/dL Albumin (3.5-5.0) g/dL Microbiology - Last 24 Hours (Table) 07/16/22 21:20 Gram Stain - Preliminary Sputum Assessment and Plan Assessment: Acute febrile illness secondary to acute bilateral pneumonia and sputum culture pending. Pro-calcitonin 0.22. Acute bilateral pneumonia, likely community-acquired. Patient is currently on Rocephin and completed Zithromax Acute hypoxic respiratory failure currently on 3 L of oxygen by nasal cannula Obstructive sleep apnea with an AHI of 119 on CPAP therapy in the outpatient basis Obesity with BMI 48 kilograms per metered square Diabetes mellitus type 2 Hypertension Plan: The patient was seen and evaluated Labs and medications reviewed Improved but not quite back to baseline Continue ceftriaxone, completed azithromycin Heparin for DVT prophylaxis Titrate the FiO2 as tolerated Increase his activity as tolerated We will continue to follow I have personally seen and examined the patient, performed the documentation and the assessment and plan as written. Number of minutes spent on the visit: 10.
[2022-07-17] MEDS: KETOROLAC 15 MG/ML 1 ML VIAL IVP PRN ×2 (13:54→21:02)
[2022-07-17 15:22] LABS: Glucose,Whole Blood 138 mg/dL (70-110)
[2022-07-17 16:20] LABS: Glucose,Whole Blood 139 mg/dL (70-110)
[2022-07-17 20:07] LABS: Glucose,Whole Blood 139 mg/dL (70-110)
[2022-07-17] MEDS: ZOLPIDEM 5 MG TAB PO PRN (21:03)
[2022-07-18] MEDS: HEPARIN SODIUM,PORCINE/PF 5,000 UNIT/0.5 ML SYRINGE SQ SCH ×4 (00:17→23:58)
[2022-07-18] MEDS: ACETAMINOPHEN TAB 325 MG TAB PO PRN (02:33)
[2022-07-18 05:47] LABS: Glucose,Whole Blood 143 mg/dL (70-110)
[2022-07-18] MEDS: INSULIN ASPART (NovoLOG) 100 UNIT/ML VIAL SQ SCH ×4 (05:48→21:48)
--- NOTE | 2022-07-18 08:51 | P.PN ---
Subjective Principal diagnosis: Bilateral pneumonia 7-year-old white male with history of cold. Diabetes who comes in with community acquired bilateral pneumonia patient states he is improving blood- tinged sputum is noted. Low-grade fevers also noted. No diarrhea Objective - Vital Signs Vital signs: Vital Signs Temp 99.0 F 07/18/22 07:28 Pulse 83 07/18/22 07:28 Resp 20 07/18/22 07:28 BP 151/77 07/18/22 07:28 Pulse Ox 92 L 07/18/22 07:28 FiO2 Intake & Output 07/17/22 07/18/22 07/18/22 18:59 06:59 18:59 Intake Total 200 1120 Balance 200 1120 Intake: Oral 200 1120 Other: # Voids 3 1 - Constitutional General appearance: Present: obese - EENT Eyes: Absent: abnormal pupil - Neck Neck: Absent: lymphadenopathy - Respiratory Respiratory: bilateral: rhonchi - Cardiovascular Rhythm: regular Heart sounds: normal: S1, S2 Abnormal Heart Sounds: Absent: S3 Gallop - Gastrointestinal General gastrointestinal: Present: soft - Labs CBC & Chem 7: 07/17/22 08:50 07/17/22 19:37 Labs: Abnormal Lab Results - Last 24 Hours (Table) 07/17/22 07/17/22 07/17/22 Range/Units 08:50 08:50 08:50 Hgb 12.5 L (13.0-17.5) gm/dL Hct 37.7 L (39.0-53.0) % Potassium 3.3 L 3.3 L (3.5-5.1) mmol/L Glucose 158 H (74-99) mg/dL POC Glucose (mg/dL) (70-110) mg/dL Calcium 8.3 L (8.4-10.2) mg/dL Total Protein 6.0 L (6.3-8.2) g/dL Albumin 3.4 L (3.5-5.0) g/dL 07/17/22 07/17/22 07/17/22 Range/Units 11:20 14:20 15:18 Hgb (13.0-17.5) gm/dL Hct (39.0-53.0) % Potassium 3.4 L (3.5-5.1) mmol/L Glucose (74-99) mg/dL POC Glucose (mg/dL) 163 H 138 H (70-110) mg/dL Calcium (8.4-10.2) mg/dL Total Protein (6.3-8.2) g/dL Albumin (3.5-5.0) g/dL 07/17/22 07/17/22 07/17/22 Range/Units 16:19 19:37 20:05 Hgb (13.0-17.5) gm/dL Hct (39.0-53.0) % Potassium 3.4 L (3.5-5.1) mmol/L Glucose (74-99) mg/dL POC Glucose (mg/dL) 139 H 139 H (70-110) mg/dL Calcium (8.4-10.2) mg/dL Total Protein (6.3-8.2) g/dL Albumin (3.5-5.0) g/dL 07/18/22 Range/Units 05:45 Hgb (13.0-17.5) gm/dL Hct (39.0-53.0) % Potassium (3.5-5.1) mmol/L Glucose (74-99) mg/dL POC Glucose (mg/dL) 143 H (70-110) mg/dL Calcium (8.4-10.2) mg/dL Total Protein (6.3-8.2) g/dL Albumin (3.5-5.0) g/dL Microbiology - Last 24 Hours (Table) 07/16/22 21:20 Gram Stain - Preliminary Sputum Assessment and Plan (1) Diabetes mellitus Current Visit: Yes Status: Acute Code(s): E11.9 - TYPE 2 DIABETES MELLITUS WITHOUT COMPLICATIONS SNOMED Code(s): 20054547 (2) Hypertension Current Visit: Yes Status: Acute Code(s): I10 - ESSENTIAL (PRIMARY) HYPERTENSION SNOMED Code(s): 41361930 (3) Obstructive sleep apnea Current Visit: Yes Status: Acute Code(s): G47.33 - OBSTRUCTIVE SLEEP APNEA (ADULT) (PEDIATRIC) SNOMED Code(s): 12716882 (4) Pneumonia Current Visit: Yes Status: Acute Code(s): J18.9 - PNEUMONIA, UNSPECIFIED ORGANISM SNOMED Code(s): 426264025 Plan: Continue current regimen of antibiotic treatment. Slow improvement. Check CBC and CMP in a.m. She orders otherwise. Appreciate pulmonary input.
[2022-07-18] MEDS: metFORMIN 500 MG TAB PO SCH ×2 (09:10→21:48)
[2022-07-18] MEDS: LISINOPRIL-HCTZ 20-25 MG 1 EACH TAB PO SCH (09:10)
[2022-07-18] MEDS: MULTIVITAMINS, THERA 1 EACH TAB PO SCH (09:10)
[2022-07-18] MEDS: allopurinoL 300 MG TAB PO SCH (09:10)
[2022-07-18] MEDS: amLODIPine 10 MG TAB PO SCH (09:10)
[2022-07-18] MEDS: PSYLLIUM HUSK 100% 6 GM PACKET PO SCH ×2 (09:10→09:15)
[2022-07-18 09:19] LABS: HCT 37.9 % (39.0-53.0); HGB 12.4 gm/dL (13.0-17.5); MCH 27.9 pg (25.0-35.0); MCHC 32.8 g/dL (31.0-37.0); MCV 85.1 fL (80.0-100.0); Mean Platelet Volume 8.3; Platelet Count 159 k/uL (150-450); RBC 4.45 m/uL (4.30-5.90); RDW 14.6 % (11.5-15.5); WBC 8.1 k/uL (3.8-10.6)
[2022-07-18 09:29] LABS: ALT 38 U/L (4-49); AST 46 U/L (17-59); African American GFR (CKD) >90 (>60 ml/min/1.73 sqM); Albumin 3.4 g/dL (3.5-5.0); Albumin/Globulin Ratio 1.3; Alkaline Phosphatase 50 U/L (38-126); Anion Gap 10 mmol/L; Blood Urea Nitrogen 18 mg/dL (9-20); Calcium 8.3 mg/dL (8.4-10.2); Carbon Dioxide 28 mmol/L (22-30); Chloride 100 mmol/L (98-107); Globulin 2.7 g/dL; Glucose 149 mg/dL (74-99); Non-African American GFR(CKD) >90 (>60 ml/min/1.73 sqM); Potassium 3.7 mmol/L (3.5-5.1); Sodium 138 mmol/L (137-145); Total Bilirubin 0.8 mg/dL (0.2-1.3); Total Protein 6.1 g/dL (6.3-8.2)
[2022-07-18 11:43] LABS: Glucose,Whole Blood 110 mg/dL (70-110)
[2022-07-18] MEDS: methylPREDNISolone SOD SUCCI 125 MG/2 ML VIAL IV SCH ×3 (12:21→23:58)
[2022-07-18] MEDS: ALBUTEROL NEBULIZED 2.5 MG/3 ML INHALATION PRN ×3 (12:41→21:48)
--- NOTE | 2022-07-18 15:02 | P.PN ---
Subjective Progress Note Date: 07/18/22 This is a 57-year-old patient, obese with known history of obstructive sleep apnea with an AHI of 100 minutes and a CPAP therapy and compliant. The patient is also diabetic and has hypertension. He presented to the hospital because of ongoing fever. He also had a cough and chest congestion. No pleurisy or hemoptysis. Temperature was as high as 10 4F. Patient came into the emergency and the patient was hemodynamically stable with a pulse ox of 90-94% and he was placed on 2 L of oxygen by nasal cannula. The patient had further blood work that showed a WBC count is 11.5 with a hemoglobin of 14 and a platelet count of 190. Sodium is at 136 with a BUN of 16 and a creatinine of 0.9. Chest x-ray showed patchy bibasilar pulmonary infiltrates consistent with a pneumonia. The chest x-ray was reviewed. Urine analysis is not available. No dysuria fix urgency. No nausea or vomiting or abdominal pain. No altered mentation. No headaches. Covid 19 testing was negative. Influenza a and B and RSV were also negative. Currently on examination of Rocephin and Zithromax. The patient is seen today 07/16/2022 in follow-up on the regular medical floor. He is currently sitting up in a chair at the bedside. Awake and alert in no acute distress. Maintaining good O2 saturations in the mid 90s on 4 L/m per nasal cannula. He is afebrile. Hemodynamically stable. Utilizing his home CPAP device. White count 12.7. Hemoglobin 14.6. Sodium 139. Potassium 3.4. Bicarb 24. BUN 14. Creatinine 0.83. Glucose 122. He is continued on antibiotics in the form of ceftriaxone and azithromycin. proCalcitonin 0.22. The patient is seen today 07/17/2022 in follow-up on the regular medical floor. He is currently awake and alert in no acute distress. Reclining in the recliner. Maintaining O2 saturations up to 100% on 3 L/m per nasal cannula. He remains febrile with a temperature of 103.2. Received acetaminophen. Continued on ceftriaxone and completed azithromycin. He is 0.9 normal saline at 75 ML's per hour. Heparin for DVT prophylaxis. Sputum culture is pending. White count 9.9. Hemoglobin 12.5. Sodium 137. Potassium 3.3. Bicarb 26. BUN 14. Creatinine 0.90. Glucose 158. Potassium being replaced. The patient is seen today 07/18/2022 in follow-up on the regular medical floor. He is sitting up in a chair at the bedside. Awake and alert in no acute distress. Breathing easier today compared to yesterday. Less cough and congestion. Today with some end expiratory wheeze. Maintaining O2 saturations in the 90s on 2 L/m per nasal cannula. Temperature 99.0. He is continued on ceftriaxone. Heparin for DVT prophylaxis. Sputum culture pending. White count 8.1. Hemoglobin 12.4. Sodium 138. Potassium 3.7. Bicarb 28. BUN 18. Creatinine 0.82. Glucose 149. Objective - Vital Signs Vital signs: Vital Signs Temp 99.0 F 07/18/22 07:28 Pulse 84 07/18/22 12:52 Resp 20 07/18/22 08:00 BP 151/77 07/18/22 07:28 Pulse Ox 92 L 07/18/22 07:28 FiO2 Intake & Output 07/17/22 07/18/22 07/18/22 18:59 06:59 18:59 Intake Total 200 1120 200 Balance 200 1120 200 Intake: Oral 200 1120 200 Other: Voiding Method Urinal # Voids 3 1 - Exam General appearance: Awake, pleasant 57-year-old male patient, body mass index of 48.0, up in a chair, currently on 2 L of oxygen by nasal cannula Head exam: Present: atraumatic, normocephalic, normal inspection Neck was supple and without jugular venous distension, thyromegaly, or carotid bruits. Carotids were easily palpable bilaterally. There was no adenopathy. Mallampati class 4 with significant crowding of posterior pharynx Respiratory exam: Present: decreased breath sounds (right lower lobe). Some bilateral end expiratory wheeze. Abdominal exam revealed normal bowel sounds. The abdomen was soft, non-tender, and without masses, organomegaly, or appreciable enlargement of the abdominal aorta. Cardiovascular Exam: Present: regular rate, normal rhythm, normal heart sounds. Absent: systolic murmur, diastolic murmur, rubs, gallop, clicks Extremities exam: Present: normal inspection, full ROM, normal capillary refill. Absent: calf tenderness Neurological exam: Present: alert, oriented X3, CN II-XII intact Psychiatric exam: Present: normal affect, normal mood Skin exam: Present: warm, dry, intact, normal color. Absent: rash - Labs CBC & Chem 7: 07/18/22 08:54 07/18/22 08:54 Labs: Abnormal Lab Results - Last 24 Hours (Table) 07/17/22 07/17/22 07/17/22 Range/Units 14:20 15:18 16:19 Hgb (13.0-17.5) gm/dL Hct (39.0-53.0) % Potassium 3.4 L (3.5-5.1) mmol/L Glucose (74-99) mg/dL POC Glucose (mg/dL) 138 H 139 H (70-110) mg/dL Calcium (8.4-10.2) mg/dL Total Protein (6.3-8.2) g/dL Albumin (3.5-5.0) g/dL 07/17/22 07/17/22 07/18/22 Range/Units 19:37 20:05 05:45 Hgb (13.0-17.5) gm/dL Hct (39.0-53.0) % Potassium 3.4 L (3.5-5.1) mmol/L Glucose (74-99) mg/dL POC Glucose (mg/dL) 139 H 143 H (70-110) mg/dL Calcium (8.4-10.2) mg/dL Total Protein (6.3-8.2) g/dL Albumin (3.5-5.0) g/dL 07/18/22 07/18/22 Range/Units 08:54 08:54 Hgb 12.4 L (13.0-17.5) gm/dL Hct 37.9 L (39.0-53.0) % Potassium (3.5-5.1) mmol/L Glucose 149 H (74-99) mg/dL POC Glucose (mg/dL) (70-110) mg/dL Calcium 8.3 L (8.4-10.2) mg/dL Total Protein 6.1 L (6.3-8.2) g/dL Albumin 3.4 L (3.5-5.0) g/dL Assessment and Plan Assessment: Acute febrile illness secondary to acute bilateral pneumonia and sputum culture pending. Pro-calcitonin 0.22. Acute bilateral pneumonia, likely community-acquired. Patient is currently on Rocephin and completed Zithromax Acute hypoxic respiratory failure currently on 2 L of oxygen by nasal cannula Obstructive sleep apnea with an AHI of 119 on CPAP therapy in the outpatient basis Obesity with BMI 48 kilograms per metered square Diabetes mellitus type 2 Hypertension Plan: The patient was seen and evaluated Labs and medications reviewed Improved but not quite back to baseline Add IV Solu-Medrol Continue ceftriaxone, completed azithromycin Heparin for DVT prophylaxis Titrate the FiO2 as tolerated Increase his activity as tolerated Follow-up chest x-ray in a.m. We will continue to follow I have personally seen and examined the patient, performed the documentation and the assessment and plan as written. Number of minutes spent on the visit: 10.
[2022-07-18 16:49] LABS: Glucose,Whole Blood 179 mg/dL (70-110)
[2022-07-18 21:30] LABS: Glucose,Whole Blood 243 mg/dL (70-110)
[2022-07-18] MEDS: SODIUM CHLORIDE 0.9% 1,000 ML IV SCH (21:49)
[2022-07-18] MEDS: ZOLPIDEM 5 MG TAB PO PRN (22:02)
[2022-07-19 00:11] LABS: Glucose,Whole Blood 216 mg/dL (70-110)
[2022-07-19 06:18] LABS: Glucose,Whole Blood 223 mg/dL (70-110)
[2022-07-19] MEDS: methylPREDNISolone SOD SUCCI 125 MG/2 ML VIAL IV SCH ×4 (06:51→23:55)
[2022-07-19] MEDS: INSULIN ASPART (NovoLOG) 100 UNIT/ML VIAL SQ SCH ×4 (06:52→21:41)
[2022-07-19] MEDS: PSYLLIUM HUSK 100% 6 GM PACKET PO SCH (07:22)
[2022-07-19] MEDS: HEPARIN SODIUM,PORCINE/PF 5,000 UNIT/0.5 ML SYRINGE SQ SCH ×3 (08:00→23:55)
[2022-07-19] MEDS: allopurinoL 300 MG TAB PO SCH (08:00)
[2022-07-19] MEDS: MULTIVITAMINS, THERA 1 EACH TAB PO SCH (08:00)
[2022-07-19] MEDS: metFORMIN 500 MG TAB PO SCH ×2 (08:00→21:41)
[2022-07-19] MEDS: LISINOPRIL-HCTZ 20-25 MG 1 EACH TAB PO SCH (08:00)
[2022-07-19] MEDS: amLODIPine 10 MG TAB PO SCH (08:00)
--- NOTE | 2022-07-19 08:34 | XR ---
EXAMINATION TYPE: XR chest 1V portable DATE OF EXAM: 07/19/2022 COMPARISON: 07/15/2022 HISTORY: Abnormal x-ray TECHNIQUE: Single frontal view of the chest is obtained. FINDINGS: There is interstitial pattern and patchy bilateral infiltrate greater at the left lung bas e. Cannot exclude tiny pleural effusion. No pneumothorax. Heart is enlarged. Atherosclerotic change a cruz. Hypertrophic change spine. IMPRESSION: 1. Patchy bilateral infiltrate correlate for pneumonia otherwise consider CHF.
--- NOTE | 2022-07-19 08:42 | P.PN ---
Subjective Progress Note Date: 07/19/22 Principal diagnosis: Upper respiratory infection This is a 57-year-old male who presented to the emergency room with complaints of fever, productive cough, and congestion with acute onset. Patient's fever at home was as high as 104F. Patient reports he has been doing some gardening at home, but denies any sick contacts. Chest x-ray showed patchy bibasilar pulmonary infiltrates consistent with pneumonia. He does have a history of prolonged hospitalization with complaint 2 years ago. Other medical history includes obstructive sleep apnea, hypertension, and diabetes. Pulmonology is consulted and patient id maintained on Zithromax and Rocephin. Patient is seen this morning sitting up in chair at bedside, reports he is feeling somewhat better. 07/17/22 Patient seen this morning sitting in chair at bedside. He reports he is feeling better. He did run a fever as high as 103 yesterday and this morning he is afebrile. Nursing staff is attempting to wean oxygen, patient currently on 3 L. 07/19/22 Patient seen this morning sitting in bedside chair. He is currently on 2 L of oxygen via nasal cannula. He reports he continues to feel better. Fever has subsided. He reports he is still coughing up a large amount of sputum. Objective - Vital Signs Vital signs: Vital Signs Temp 97.2 F L 07/19/22 00:21 Pulse 68 07/19/22 00:21 Resp 16 07/19/22 00:21 BP 130/84 07/19/22 00:21 Pulse Ox 96 07/19/22 00:21 FiO2 Intake & Output 07/18/22 07/19/22 07/19/22 18:59 06:59 18:59 Intake Total 600 Balance 600 Intake: Oral 600 Other: Voiding Method Urinal Urinal # Voids 3 3 - Constitutional General appearance: Present: cooperative, no acute distress - EENT Eyes: Present: PERRLA - Neck Neck: Present: normal ROM. Absent: lymphadenopathy, rigidity - Respiratory Respiratory: bilateral: rhonchi - Cardiovascular Rhythm: regular Heart sounds: normal: S1, S2 - Gastrointestinal General gastrointestinal: Present: soft. Absent: tenderness - Integumentary Integumentary: Present: normal, normal turgor - Psychiatric Psychiatric: Present: A&O x's 3, appropriate affect, intact judgment & insight - Labs CBC & Chem 7: 07/18/22 08:54 07/18/22 08:54 Labs: Abnormal Lab Results - Last 24 Hours (Table) 07/18/22 07/18/22 07/18/22 Range/Units 08:54 08:54 16:47 Hgb 12.4 L (13.0-17.5) gm/dL Hct 37.9 L (39.0-53.0) % Glucose 149 H (74-99) mg/dL POC Glucose (mg/dL) 179 H (70-110) mg/dL Calcium 8.3 L (8.4-10.2) mg/dL Total Protein 6.1 L (6.3-8.2) g/dL Albumin 3.4 L (3.5-5.0) g/dL 07/18/22 07/19/22 07/19/22 Range/Units 21:29 00:09 06:16 Hgb (13.0-17.5) gm/dL Hct (39.0-53.0) % Glucose (74-99) mg/dL POC Glucose (mg/dL) 243 H 216 H 223 H (70-110) mg/dL Calcium (8.4-10.2) mg/dL Total Protein (6.3-8.2) g/dL Albumin (3.5-5.0) g/dL Microbiology - Last 24 Hours (Table) 07/17/22 14:24 Blood Culture - Preliminary Blood 07/16/22 21:20 Gram Stain - Preliminary Sputum Sputum Culture - Preliminary Assessment and Plan (1) Pneumonia Current Visit: Yes Status: Acute Code(s): J18.9 - PNEUMONIA, UNSPECIFIED ORGANISM SNOMED Code(s): 450537285 (2) Hypoxia Current Visit: Yes Status: Acute Code(s): R09.02 - HYPOXEMIA SNOMED Code(s): 074452136 (3) Diabetes mellitus Current Visit: Yes Status: Acute Code(s): E11.9 - TYPE 2 DIABETES MELLITUS WITHOUT COMPLICATIONS SNOMED Code(s): 09877451 (4) Hypertension Current Visit: Yes Status: Acute Code(s): I10 - ESSENTIAL (PRIMARY) HYPERTENSION SNOMED Code(s): 92442932 (5) Obstructive sleep apnea Current Visit: Yes Status: Acute Code(s): G47.33 - OBSTRUCTIVE SLEEP APNEA (ADULT) (PEDIATRIC) SNOMED Code(s): 51197537 Plan: Check CBC and CMP in the morning. Continue weaning oxygen. decrease IV fluids to 20 mL per hour Possible discharge in the next 24-48 hours. Patient seen and evaluated by nurse practitioner, physician in agreement with plan
[2022-07-19] MEDS ORDERED: SODIUM CHLORIDE 0.9% 1,000 ML IV SCH (08:45)
[2022-07-19] MEDS: ALBUTEROL NEBULIZED 2.5 MG/3 ML INHALATION PRN ×2 (09:55→13:43)
[2022-07-19 12:06] LABS: Glucose,Whole Blood 233 mg/dL (70-110)
--- NOTE | 2022-07-19 13:07 | P.PN ---
Subjective Progress Note Date: 07/19/22 This is a 57-year-old patient, obese with known history of obstructive sleep apnea with an AHI of 100 minutes and a CPAP therapy and compliant. The patient is also diabetic and has hypertension. He presented to the hospital because of ongoing fever. He also had a cough and chest congestion. No pleurisy or hemoptysis. Temperature was as high as 10 4F. Patient came into the emergency and the patient was hemodynamically stable with a pulse ox of 90-94% and he was placed on 2 L of oxygen by nasal cannula. The patient had further blood work that showed a WBC count is 11.5 with a hemoglobin of 14 and a platelet count of 190. Sodium is at 136 with a BUN of 16 and a creatinine of 0.9. Chest x-ray showed patchy bibasilar pulmonary infiltrates consistent with a pneumonia. The chest x-ray was reviewed. Urine analysis is not available. No dysuria fix urgency. No nausea or vomiting or abdominal pain. No altered mentation. No headaches. Covid 19 testing was negative. Influenza a and B and RSV were also negative. Currently on examination of Rocephin and Zithromax. The patient is seen today 07/16/2022 in follow-up on the regular medical floor. He is currently sitting up in a chair at the bedside. Awake and alert in no acute distress. Maintaining good O2 saturations in the mid 90s on 4 L/m per nasal cannula. He is afebrile. Hemodynamically stable. Utilizing his home CPAP device. White count 12.7. Hemoglobin 14.6. Sodium 139. Potassium 3.4. Bicarb 24. BUN 14. Creatinine 0.83. Glucose 122. He is continued on antibiotics in the form of ceftriaxone and azithromycin. proCalcitonin 0.22. The patient is seen today 07/17/2022 in follow-up on the regular medical floor. He is currently awake and alert in no acute distress. Reclining in the recliner. Maintaining O2 saturations up to 100% on 3 L/m per nasal cannula. He remains febrile with a temperature of 103.2. Received acetaminophen. Continued on ceftriaxone and completed azithromycin. He is 0.9 normal saline at 75 ML's per hour. Heparin for DVT prophylaxis. Sputum culture is pending. White count 9.9. Hemoglobin 12.5. Sodium 137. Potassium 3.3. Bicarb 26. BUN 14. Creatinine 0.90. Glucose 158. Potassium being replaced. The patient is seen today 07/18/2022 in follow-up on the regular medical floor. He is sitting up in a chair at the bedside. Awake and alert in no acute distress. Breathing easier today compared to yesterday. Less cough and congestion. Today with some end expiratory wheeze. Maintaining O2 saturations in the 90s on 2 L/m per nasal cannula. Temperature 99.0. He is continued on ceftriaxone. Heparin for DVT prophylaxis. Sputum culture pending. White count 8.1. Hemoglobin 12.4. Sodium 138. Potassium 3.7. Bicarb 28. BUN 18. Creatinine 0.82. Glucose 149. The patient is seen today 07/19/2022 in follow-up on the regular medical floor. He is awake and alert in no acute distress. Sitting up in a chair at the bedside. Breathing better today compared to yesterday. He's been afebrile for 24 hours. Chest x-ray continues show patchy bilateral infiltrates. He is maintaining good O2 saturations in the 90s on 2 L nasal cannula. Remains on ceftriaxone. Remains on IV Solu-Medrol. Sputum culture revealed no growth. Blood cultures revealed no growth. Blood sugar 233. Objective - Vital Signs Vital signs: Vital Signs Temp 97.4 F L 07/19/22 07:28 Pulse 80 07/19/22 10:07 Resp 18 07/19/22 07:28 BP 118/78 07/19/22 07:28 Pulse Ox 95 07/19/22 09:58 FiO2 Intake & Output 07/18/22 07/19/22 07/19/22 18:59 06:59 18:59 Intake Total 600 Balance 600 Intake: Oral 600 Other: Voiding Method Urinal Urinal Urinal # Voids 3 3 - Exam General appearance: Awake, pleasant 57-year-old male patient, up in a chair, currently on 2 L of oxygen Head exam: Present: atraumatic, normocephalic, normal inspection Neck was supple and without jugular venous distension. Carotids were easily palpable bilaterally. There was no adenopathy. Mallampati class 4 with significant crowding of posterior pharynx Respiratory exam: Present: decreased breath sounds (right lower lobe). Some bilateral end expiratory wheeze. Abdominal exam revealed normal bowel sounds. The abdomen was soft, non-tender, and without masses, organomegaly, or appreciable enlargement of the abdominal aorta. Cardiovascular Exam: Present: regular rate, normal rhythm, normal heart sounds. Absent: systolic murmur, diastolic murmur, rubs, gallop, clicks Extremities exam: Present: normal inspection, full ROM, normal capillary refill. Absent: calf tenderness Neurological exam: Present: alert, oriented X3, CN II-XII intact Psychiatric exam: Present: normal affect, normal mood Skin exam: Present: warm, dry, intact, normal color. Absent: rash - Labs CBC & Chem 7: 07/18/22 08:54 07/18/22 08:54 Labs: Abnormal Lab Results - Last 24 Hours (Table) 07/18/22 07/18/22 07/19/22 Range/Units 16:47 21:29 00:09 POC Glucose (mg/dL) 179 H 243 H 216 H (70-110) mg/dL 07/19/22 07/19/22 Range/Units 06:16 12:04 POC Glucose (mg/dL) 223 H 233 H (70-110) mg/dL Microbiology - Last 24 Hours (Table) 07/16/22 21:20 Gram Stain - Final Sputum Sputum Culture - Final 07/17/22 14:24 Blood Culture - Preliminary Blood Assessment and Plan Assessment: Acute febrile illness secondary to acute bilateral pneumonia. Pro-calcitonin 0.22. Blood culture revealed no growth Acute bilateral pneumonia, likely community-acquired. Patient is currently on Rocephin and completed Zithromax Acute hypoxic respiratory failure currently on 2 L of oxygen by nasal cannula Obstructive sleep apnea with an AHI of 119 on CPAP therapy in the outpatient basis Obesity with BMI 48 kilograms per metered square Diabetes mellitus type 2 Hypertension Plan: The patient was seen and evaluated Chest x-ray, labs and medications reviewed Improved but not quite back to baseline Continue ceftriaxone, completed azithromycin We will switch to oral antibiotics in the a.m. Probable discharge in the a.m. We will continue to follow I have personally seen and examined the patient, performed the documentation and the assessment and plan as written. Number of minutes spent on the visit: 10.
[2022-07-19 16:48] LABS: Glucose,Whole Blood 262 mg/dL (70-110)
[2022-07-19 19:27] LABS: Glucose,Whole Blood 264 mg/dL (70-110)
[2022-07-19] MEDS: ZOLPIDEM 5 MG TAB PO PRN (21:41)
[2022-07-20 06:24] LABS: Glucose,Whole Blood 243 mg/dL (70-110)
[2022-07-20] MEDS: methylPREDNISolone SOD SUCCI 125 MG/2 ML VIAL IV SCH (06:55)
[2022-07-20] MEDS: INSULIN ASPART (NovoLOG) 100 UNIT/ML VIAL SQ SCH ×2 (06:55→12:02)
[2022-07-20] MEDS: PSYLLIUM HUSK 100% 6 GM PACKET PO SCH (07:33)
[2022-07-20 07:40] LABS: HCT 37.7 % (39.0-53.0); HGB 12.6 gm/dL (13.0-17.5); MCHC 33.4 g/dL (31.0-37.0); MCV 83.7 fL (80.0-100.0); Mean Platelet Volume 9.3; Platelet Count 209 k/uL (150-450); RDW 14.3 % (11.5-15.5); WBC 9.9 k/uL (3.8-10.6)
[2022-07-20 07:56] LABS: ALT 54 U/L (4-49); AST 37 U/L (17-59); African American GFR (CKD) >90 (>60 ml/min/1.73 sqM); Albumin 3.3 g/dL (3.5-5.0); Albumin/Globulin Ratio 1.3; Alkaline Phosphatase 66 U/L (38-126); Anion Gap 10 mmol/L; Blood Urea Nitrogen 27 mg/dL (9-20); Calcium 9.1 mg/dL (8.4-10.2); Carbon Dioxide 30 mmol/L (22-30); Chloride 98 mmol/L (98-107); Globulin 2.6 g/dL; Glucose 236 mg/dL (74-99); Non-African American GFR(CKD) >90 (>60 ml/min/1.73 sqM); Potassium 3.7 mmol/L (3.5-5.1); Sodium 138 mmol/L (137-145); Total Bilirubin 0.5 mg/dL (0.2-1.3); Total Protein 5.9 g/dL (6.3-8.2)
--- NOTE | 2022-07-20 08:19 | P.DS ---
Providers Date of admission: 07/15/22 06:25 Expected date of discharge: 07/20/22 Attending physician: Jose Lusi Garcia Consults: 07/15/22 02:55 Consult Physician Routine Consulting Provider: Yuki Vargas Consult Reason/Comments: pneumonia with hypoxia Do you want consulting provider notified?: Yes Primary care physician: Jose Luis Garcia - Discharge Diagnosis(es) (1) Diabetes mellitus Current Visit: Yes Status: Acute (2) Hypertension Current Visit: Yes Status: Acute (3) Obstructive sleep apnea Current Visit: Yes Status: Acute (4) Pneumonia Current Visit: Yes Status: Acute Hospital Course: The patient was essentially admitted for bilateral pneumonia to be required. The patient was started on empiric anabiotic treatment with steroids and did quite well. The patient is not discharged after 4-5 days of treatment with no fever tolerating diet no significant diarrhea or blood sugar stable. Patient is off oxygen and was discharged on taper prednisone and appropriate antibiotic treatment. The patient will follow-up with me in about 3-5 days. Patient Condition at Discharge: Good Plan - Discharge Summary New Discharge Prescriptions: New cefUROXime axetiL [Cefuroxime] 500 mg PO DAILY 7 Days #14 tab predniSONE [Deltasone] 20 mg PO DIRECTED #18 tab Continue Lisinopril-Hctz 20-25 mg [Zestoretic 20-25] 1 tab PO DAILY amLODIPine [Norvasc] 10 mg PO DAILY Psyllium Husk [Metamucil] 0.8 gm PO DAILY Ascorbic Acid [Vitamin C] 1,000 mg PO DAILY allopurinoL [Zyloprim] 300 mg PO DAILY metFORMIN HCL 500 mg PO BID Zinc Gluconate [Zinc] 50 mg PO DAILY Dulaglutide [Trulicity] 3 mg SQ MO Cholecalciferol [Vitamin D3 (25 Mcg = 1000 Iu)] 25 mcg PO DAILY fluocinolone acetonide oiL [Dermotic] 1 applic BOTH EARS DAILY PRN PRN Reason: ear issues Discharge Medication List Lisinopril-Hctz 20-25 mg [Zestoretic 20-25] 1 tab PO DAILY 02/15/15 [History] allopurinoL [Zyloprim] 300 mg PO DAILY 02/20/22 [History] amLODIPine [Norvasc] 10 mg PO DAILY 02/20/22 [History] metFORMIN HCL 500 mg PO BID 02/20/22 [History] Ascorbic Acid [Vitamin C] 1,000 mg PO DAILY 07/15/22 [History] Cholecalciferol [Vitamin D3 (25 Mcg = 1000 Iu)] 25 mcg PO DAILY 07/15/22 [History] Dulaglutide [Trulicity] 3 mg SQ MO 07/15/22 [History] Psyllium Husk [Metamucil] 0.8 gm PO DAILY 07/15/22 [History] Zinc Gluconate [Zinc] 50 mg PO DAILY 07/15/22 [History] fluocinolone acetonide oiL [Dermotic] 1 applic BOTH EARS DAILY PRN 07/15/22 [History] cefUROXime axetiL [Cefuroxime] 500 mg PO DAILY 7 Days #14 tab 07/20/22 [Rx] predniSONE [Deltasone] 20 mg PO DIRECTED #18 tab 07/20/22 [Rx] Follow up Appointment(s)/Referral(s): Jose Luis Garcia MD [Primary Care Provider] - 3 Days Patient Instructions/Handouts: Upper Respiratory Infection (ED)
[2022-07-20 08:51] VITALS: BP 135/73; PULSE 55; RESP 15; TEMP 98.1
[2022-07-20] MEDS: HEPARIN SODIUM,PORCINE/PF 5,000 UNIT/0.5 ML SYRINGE SQ SCH (08:53)
[2022-07-20] MEDS: allopurinoL 300 MG TAB PO SCH (08:54)
[2022-07-20] MEDS: MULTIVITAMINS, THERA 1 EACH TAB PO SCH (08:54)
[2022-07-20] MEDS: amLODIPine 10 MG TAB PO SCH (08:54)
[2022-07-20] MEDS: LISINOPRIL-HCTZ 20-25 MG 1 EACH TAB PO SCH (08:54)
[2022-07-20] MEDS: metFORMIN 500 MG TAB PO SCH (08:54)
--- NOTE | 2022-07-20 11:01 | CDI ---
Documentation Clarification Form Date: 07/20/2022 10:21:04 AM From: Elza Salazar RN, CCDS Admit Date: 07/15/2022 06:25:00 AM Patient Name: Bobby Hernandez Visit Number: [id number] Discharge Date: ATTENTION: The Clinical Documentation Specialists (CDI) and [facility] Coding Staff appreciate your assistance in clarifying documentation. Please respond to the clarification below the line at the bottom and electronically sign. The CDI & [facility] Coding staff will review the response and follow-up if needed. Please note: Queries are made part of the Legal Health Record. If you have any questions, please contact the author of this message via ITS. Dr. Jose Luis Garcia Sepsis is documented in the H/P but is not noted in subsequent documentation. Clarification is requested. History/Risk Factors: Obstructive sleep apnea, Hypertension Diabetes, Clinical Indicators: 57-year-old male present with complaints of fever and chest congestion. He had noted fever at home about 104 T-max. 07/15 VS: (23:14) 149/81 91 20 100.5 92 % RA, (00:07) 102.1, (03:30) 100/63 73 22 100.1 07/15 Labs WBC 11.4 Neutrophils 9.6 Procalcitonin 0.22 07/16 C-Reactive Protein 8.7 07/17 Blood culture: Pending 07/15 CXR: Focal area of consolidation in the right lower lobe. Treatment: Azithromycin 500MG IVPB Once then 500 MG PO DAILY 07/14-07/17 Rocephin 2 GM IVPB Once then Q 24 HR 07/15-07/19 Please clarify if the Sepsis is: [ ] Sepsis, confirmed, POA, resolved [ ] Sepsis ruled out [ ] Other condition, please specify [ ] Unable to determine (Template Last Revised: April 2020) MTDD
[2022-07-20 11:50] LABS: Glucose,Whole Blood 244 mg/dL (70-110)
[2022-07-20] MEDS ORDERED: LEVOFLOXACIN 500 MG TAB PO SCH (12:00)
[2022-07-20 13:05] VITALS: BMI 47.9
--- NOTE | 2022-07-20 15:48 | P.PN ---
Subjective Progress Note Date: 07/20/22 This is a 57-year-old patient, obese with known history of obstructive sleep apnea with an AHI of 100 minutes and a CPAP therapy and compliant. The patient is also diabetic and has hypertension. He presented to the hospital because of ongoing fever. He also had a cough and chest congestion. No pleurisy or hemoptysis. Temperature was as high as 10 4F. Patient came into the emergency and the patient was hemodynamically stable with a pulse ox of 90-94% and he was placed on 2 L of oxygen by nasal cannula. The patient had further blood work that showed a WBC count is 11.5 with a hemoglobin of 14 and a platelet count of 190. Sodium is at 136 with a BUN of 16 and a creatinine of 0.9. Chest x-ray showed patchy bibasilar pulmonary infiltrates consistent with a pneumonia. The chest x-ray was reviewed. Urine analysis is not available. No dysuria fix urgency. No nausea or vomiting or abdominal pain. No altered mentation. No headaches. Covid 19 testing was negative. Influenza a and B and RSV were also negative. Currently on examination of Rocephin and Zithromax. The patient is seen today 07/16/2022 in follow-up on the regular medical floor. He is currently sitting up in a chair at the bedside. Awake and alert in no acute distress. Maintaining good O2 saturations in the mid 90s on 4 L/m per nasal cannula. He is afebrile. Hemodynamically stable. Utilizing his home CPAP device. White count 12.7. Hemoglobin 14.6. Sodium 139. Potassium 3.4. Bicarb 24. BUN 14. Creatinine 0.83. Glucose 122. He is continued on antibiotics in the form of ceftriaxone and azithromycin. proCalcitonin 0.22. The patient is seen today 07/17/2022 in follow-up on the regular medical floor. He is currently awake and alert in no acute distress. Reclining in the recliner. Maintaining O2 saturations up to 100% on 3 L/m per nasal cannula. He remains febrile with a temperature of 103.2. Received acetaminophen. Continued on ceftriaxone and completed azithromycin. He is 0.9 normal saline at 75 ML's per hour. Heparin for DVT prophylaxis. Sputum culture is pending. White count 9.9. Hemoglobin 12.5. Sodium 137. Potassium 3.3. Bicarb 26. BUN 14. Creatinine 0.90. Glucose 158. Potassium being replaced. The patient is seen today 07/18/2022 in follow-up on the regular medical floor. He is sitting up in a chair at the bedside. Awake and alert in no acute distress. Breathing easier today compared to yesterday. Less cough and congestion. Today with some end expiratory wheeze. Maintaining O2 saturations in the 90s on 2 L/m per nasal cannula. Temperature 99.0. He is continued on ceftriaxone. Heparin for DVT prophylaxis. Sputum culture pending. White count 8.1. Hemoglobin 12.4. Sodium 138. Potassium 3.7. Bicarb 28. BUN 18. Creatinine 0.82. Glucose 149. The patient is seen today 07/19/2022 in follow-up on the regular medical floor. He is awake and alert in no acute distress. Sitting up in a chair at the bedside. Breathing better today compared to yesterday. He's been afebrile for 24 hours. Chest x-ray continues show patchy bilateral infiltrates. He is maintaining good O2 saturations in the 90s on 2 L nasal cannula. Remains on ceftriaxone. Remains on IV Solu-Medrol. Sputum culture revealed no growth. Blood cultures revealed no growth. Blood sugar 233. The patient is seen today 07/20/2022 in follow-up on the regular medical floor. He is currently sitting up in a chair. Awake and alert in no acute distress. Feeling nearly back to his baseline. No fever or chills. No worsening shortness of breath, cough or congestion. He is maintaining good O2 saturations in the 90s on room air. Febrile. Hemodynamically stable. White count 9.9. Hemoglobin 12.6. Platelets 209. Sodium 1:30. Potassium 3.7. Bicarb 30. BUN 27. Creatinine 0.76. Glucose 236. He is continued on ceftriaxone and blood cultures revealed no growth. Sputum culture revealed no growth. Objective - Vital Signs Vital signs: Vital Signs Temp 98.1 F 07/20/22 06:53 Pulse 55 L 07/20/22 08:00 Resp 15 07/20/22 08:00 BP 135/73 07/20/22 06:53 Pulse Ox 92 L 07/20/22 06:53 FiO2 Intake & Output 07/19/22 07/20/22 07/20/22 18:59 06:59 18:59 Output Total 400 Balance -400 Weight 147.418 kg Output: Urine 400 Other: Voiding Method Urinal Urinal Urinal # Voids 2 2 - Exam General appearance: Awake, pleasant obese 57-year-old male patient, up in a chair, currently on room air Head exam: Present: atraumatic, normocephalic, normal inspection Neck was supple and without jugular venous distension. Carotids were easily palpable bilaterally. There was no adenopathy. Mallampati class 4 with significant crowding of posterior pharynx Respiratory exam: Present: decreased breath sounds (right lower lobe). Some bilateral end expiratory wheeze. Abdominal exam revealed normal bowel sounds. The abdomen was soft, non-tender, and without masses, organomegaly, or appreciable enlargement of the abdominal aorta. Cardiovascular Exam: Present: regular rate, normal rhythm, normal heart sounds. Absent: systolic murmur, diastolic murmur, rubs, gallop, clicks Extremities exam: Present: normal inspection, full ROM, normal capillary refill. Absent: calf tenderness Neurological exam: Present: alert, oriented X3, CN II-XII intact Psychiatric exam: Present: normal affect, normal mood Skin exam: Present: warm, dry, intact, normal color. Absent: rash - Labs CBC & Chem 7: 07/20/22 07:01 07/20/22 07:01 Labs: Abnormal Lab Results - Last 24 Hours (Table) 07/19/22 07/19/22 07/20/22 Range/Units 16:46 19:25 06:23 Hgb (13.0-17.5) gm/dL Hct (39.0-53.0) % BUN (9-20) mg/dL Glucose (74-99) mg/dL POC Glucose (mg/dL) 262 H 264 H 243 H (70-110) mg/dL ALT (4-49) U/L Total Protein (6.3-8.2) g/dL Albumin (3.5-5.0) g/dL 07/20/22 07/20/22 07/20/22 Range/Units 07:01 07:01 11:48 Hgb 12.6 L (13.0-17.5) gm/dL Hct 37.7 L (39.0-53.0) % BUN 27 H (9-20) mg/dL Glucose 236 H (74-99) mg/dL POC Glucose (mg/dL) 244 H (70-110) mg/dL ALT 54 H (4-49) U/L Total Protein 5.9 L (6.3-8.2) g/dL Albumin 3.3 L (3.5-5.0) g/dL Microbiology - Last 24 Hours (Table) 07/17/22 14:24 Blood Culture - Preliminary Blood 07/15/22 11:40 Legionella Culture - Preliminary Sputum Assessment and Plan Assessment: Acute febrile illness secondary to acute bilateral pneumonia. Pro-calcitonin 0.22. Blood culture revealed no growth Acute bilateral pneumonia, likely community-acquired. Patient is currently on Rocephin and completed Zithromax Acute hypoxic respiratory failure currently on 2 L of oxygen by nasal cannula Obstructive sleep apnea with an AHI of 119 on CPAP therapy in the outpatient basis Obesity with BMI 48 kilograms per metered square Diabetes mellitus type 2 Hypertension Plan: The patient was seen and evaluated Labs and medications reviewed Clear for discharge from the pulmonary standpoint Complete 5 days of Levaquin 500 milligrams daily Complete a Medrol Dosepak Follow-up in our office in 1 week I have personally seen and examined the patient, performed the documentation and the assessment and plan as written. Number of minutes spent on the visit: 10.
[2022-07-21] MEDS ORDERED: methylPREDNISolone 4 MG TAB TAPER PO SCH (09:00)
--- NOTE | 2022-07-23 09:34 | CDI ---
Documentation Clarification Form Date: 07/20/2022 10:21:00 AM From: Elza Salazar RN, CCDS Admit Date: 07/15/2022 06:25:00 AM Patient Name: Bobby Hernandez Visit Number: [id number] Discharge Date: 07/20/2022 01:43:00 PM ATTENTION: The Clinical Documentation Specialists (CDI) and [facility] Coding Staff appreciate your assistance in clarifying documentation. Please respond to the clarification below the line at the bottom and electronically sign. The CDI & [facility] Coding staff will review the response and follow-up if needed. Please note: Queries are made part of the Legal Health Record. If you have any questions, please contact the author of this message via ITS. Dr. Jose Luis Garcia Sepsis is documented in the H/P but is not noted in subsequent documentation. Clarification is requested. History/Risk Factors: Obstructive sleep apnea, Hypertension Diabetes, Clinical Indicators: 57-year-old male present with complaints of fever and chest congestion. He had noted fever at home about 104 T-max. 07/15 VS: (23:14) 149/81 91 20 100.5 92 % RA, (00:07) 102.1, (03:30) 100/63 73 22 100.1 07/15 Labs WBC 11.4 Neutrophils 9.6 Procalcitonin 0.22 07/16 C-Reactive Protein 8.7 07/17 Blood culture: Pending 07/15 CXR: Focal area of consolidation in the right lower lobe. Treatment: Azithromycin 500MG IVPB Once then 500 MG PO DAILY 07/14-07/17 Rocephin 2 GM IVPB Once then Q 24 HR 07/15-07/19 Please clarify if the Sepsis is: [ x ] Sepsis, confirmed, POA, resolved [ ] Sepsis ruled out [ ] Other condition, please specify [ ] Unable to determine (Template Last Revised: April 2020) MTDD
== END 2022-07-20 13:43 | disposition home or self-care (01) | DRG 871 ==
LOC: EC 23:11 → 4SSUR 07-15 06:25
PROVIDERS: ADMIT Family Medicine; ATTEND Family Medicine
DX: A41.9 Sepsis, unspecified organism (principal); J18.9 Pneumonia, unspecified organism; J96.01 Acute respiratory failure with hypoxia; J44.0 Chronic obstructive pulmonary disease with (acute) lower respiratory infection; Z68.42 Body mass index [BMI] 45.0-49.9, adult; E11.9 Type 2 diabetes mellitus without complications; E66.01 Morbid (severe) obesity due to excess calories; I10 Essential (primary) hypertension; Z20.822 Contact with and (suspected) exposure to COVID-19; G47.33 Obstructive sleep apnea (adult) (pediatric); E87.6 Hypokalemia; Z88.1 Allergy status to other antibiotic agents; Z79.899 Other long term (current) drug therapy; Z79.85 Long-term (current) use of injectable non-insulin antidiabetic drugs; Z79.84 Long term (current) use of oral hypoglycemic drugs; Z86.16 Personal history of COVID-19; Z28.310 Unvaccinated for COVID-19
CPT/HCPCS: 36415; 71045; 71046; 80048; 80053; 81001; 83605; 84132; 84145; 85025; 85027; 86140; 87040; 87070; 87205; 87449; 87636; 93005; 94640; 94760; 96361; 96365; 96372; 96375; 99285

== ENCOUNTER → 2022-10-09 | Outpatient (CLI) | payer OTHER ==
--- NOTE | 2022-10-09 15:20 | P.PN ---
Progress Note - Text Progress Note Date: 10/09/2210/09 2022, the patient is being seen at the sleep Center for a follow-up. The patient has history of severe obstructive sleep apnea with an AHI 100. The patient was treated with CPAP at a pressure of 14 cm of water and his treatment has been essentially successful over the years. He remains very compliant to CPAP machine. On that to see ongoing weight loss and the patient is doing aggressive diet control and changing and is feeding habits and he has lost significant amount of weight. For instance, approximately year ago, he used to weigh 371 pounds and currently is down to 323. He is still using his CPAP and he remains very compliant. I checked his compliance data on his machine. The patient's overall compliancy needed 100%. The patient has been averaging around 7.7 hours of CPAP use per night and his leak is in order of 15 L/m and his AHI is down to 0.8. He is using Lilo view fullface mask. No major leaks around the mask. No snoring while on treatment. No major tiredness or sleepiness during the day. Is quite active at work. He maintains a regular sleep schedule. No new onset comorbidities and the patient's blood pressures under good control. No congestion heart failure. No stroke. No cardiac arrhythmias. The Eustis score is currently at 5. BP is 142/84, pulse is 62, respirations 16, temperature is 97.9 and the pulse ox is 95% on room air. His weight is 323 pounds. His Eustis score is at 5 Gen. appearance morbidly obese, calm and comfortable, not in acute distress Head exam was generally normal. There was no scleral icterus or corneal arcus. Mucous membranes were moist. Neck was supple and without jugular venous distension, thyromegaly, or carotid bruits. Carotids were easily palpable bilaterally. There was no adenopathy. The patient has a Mallampati class IV Lungs were clear to auscultation and percussion, and with normal diaphragmatic excursion. No wheezes or rales were noted. Cardiac exam revealed the PMI to be normally situated and sized. The rhythm was regular and no extrasystoles were noted during several minutes of auscultation. The first and second heart sounds were normal and physiologic splitting of the second heart sound was noted. There were no murmurs, rubs, clicks, or gallops. Abdominal exam revealed normal bowel sounds. The abdomen was soft, non-tender, and without masses, organomegaly, or appreciable enlargement of the abdominal aorta. Examination of the extremities revealed easily palpable radial, femoral and pedal pulses. There was no cyanosis, clubbing or edema. Examination of the skin revealed no evidence of significant rashes, suspicious appearing nevi or other concerning lesions. Neurologically, the patient is awake and alert and the patient does not have any focal neurological deficit. Cranial nerves are essentially intact. Assessment Severe symptomatic HERON with an AHI 100, successfully treated with CPAP at a pressure of 14 cm of water. Treatment has been successful over the past one year as the patient continues to lose weight Morbid obesity with successful weight loss and the patient's current weight is down to 323 pounds Chronic hypersomnia, recovered Blood pressure/hypertension and the patient's blood pressures under adequate control for now on a combination of lisinopril, amlodipine, and he is off hydrochlorothiazide for now Diabetes mellitus, maintain on a combination of Trulicity and metformin. Plan Based on his underlying and ongoing weight loss, ongoing suspicious patient to a APAP mode. He will be set at a minimum pressure of 6 and the max and pressure of 14. He'll be kept on the same mask interface. Encourage further weight loss. Maintaining good sleep hygiene measures. Treatment is successful. Refills were given. See me back in one year.
== END ==
LOC: 3 N SLEEP 13:56
PROVIDERS: ATTEND Internal Medicine Critical Care Medicine
DX: G47.33 Obstructive sleep apnea (adult) (pediatric) (principal); E66.01 Morbid (severe) obesity due to excess calories; I10 Essential (primary) hypertension; E11.9 Type 2 diabetes mellitus without complications; Z79.84 Long term (current) use of oral hypoglycemic drugs; Z79.85 Long-term (current) use of injectable non-insulin antidiabetic drugs; Z88.8 Allergy status to other drugs, medicaments and biological substances; Z79.899 Other long term (current) drug therapy
CPT/HCPCS: 99212

== ENCOUNTER → 2022-11-14 | Outpatient (CLI) | payer OTHER ==
--- NOTE | 2022-11-15 13:13 | US ---
EXAMINATION TYPE: US mass soft tissue chest/back DATE OF EXAM: 11/14/2022 COMPARISON: NONE CLINICAL INDICATION: Male, 57 years old with history of R22.2 LOCALIZED SWELLING, MASS AND LUMP, TRUN K; Pt has lump on right lateral side/back x 2 months. The lump is hard and pt states he feels it has gotten bigger. TECHNIQUE: Soft tissue scan of palpable FINDINGS: Safety Associate notes: Hypoechoic lobular nonvascular area seen in area of lump measuring 6.9 x 5.0 x 4.9cm IMPRESSION: An unusual lobulated hypoechoic area at the patient's palpable site measuring up to 6.9 x 5.0 x 4.9 cm. The exact etiology is unclear. Recommend further contrast enhanced CT evaluation to e xclude lymphadenopathy or mass.
== END | disposition home or self-care (01) ==
LOC: RADUSWWP 16:01
PROVIDERS: ATTEND Surgery
DX: R22.2 Localized swelling, mass and lump, trunk (principal)

== ENCOUNTER → 2022-11-30 | Outpatient (CLI) | payer OTHER ==
[2022-11-30 14:16] LABS: African American GFR (CKD) >90 (>60 ml/min/1.73 sqM); Blood Urea Nitrogen 20 mg/dL (9-20); Non-African American GFR(CKD) 87 (>60 ml/min/1.73 sqM)
--- NOTE | 2022-11-30 17:55 | CT ---
EXAMINATION TYPE: CT chest abdomen w con DATE OF EXAM: 11/30/2022 COMPARISON: Ultrasound 11/14/2022 HISTORY: 57-year-old male R22.2, mass on lower right back 2-3 months TECHNIQUE: Contiguous axial scanning of the chest and abdomen following administration of 100 ml Isov ue 300 IV contrast. Delayed images through the kidneys and coronal/sagittal reconstructions performe d. CT DLP: 1349 mGycm Automated exposure control for dose reduction was used. FINDINGS: CHEST: Heart upper limits of normal in size without pericardial effusion. Ascending aorta aneurysmal 4.3 cm. Conventional arterial vessel branching anatomy. Large caliber to the main right and left pulmonary arteries measuring up to 3.1 cm suggesting underly ing pulmonary hypertension. No thoracic lymphadenopathy by CT size criteria. Some strandy atelectasis in the lower lungs without consolidation or pleural effusion. ABDOMEN: There is a tiny hiatal hernia. Liver enlarged at 19.1 cm. There is mild fatty infiltration. Portal venous system is patent. No bilia ry ductal dilatation. Gallbladder, adrenal glands, left kidney, and pancreas within normal limits. Spleen is mildly enlarged at 14.8 cm. There is a nonspecific 2.5 cm hypodense region medial lower pole right kidney. This should be reasses sed at follow-up. No dilated small bowel, free fluid, or free air. No mesenteric or retroperitoneal lymphadenopathy. Mild stool burden. No pericolonic inflammatory changes. The pelvis is not imaged. There is an abnormal mass located within the subcutaneous adipose layer. Bilateral and spans over 13 cm craniocaudal. Superior component along the lower right flank measures 7.8 cm wide. A second compon ent tracking inferiorly overlying the superior lateral aspect of the gluteal musculature measures up to 14.6 cm wide and continues to track inferiorly outside the field of view lateral to the gluteal mu sculature. Exact etiology is unclear. BONES: Patient throughout the mid to lower thoracic and upper lumbar spine. Vascular disease lumbar spine an d hypertrophic facet arthropathy throughout the mid and lower lumbar spine. IMPRESSION: 1. LARGE LOBULATED MASSLIKE COLLECTION IN THE DEEP SUBCUTANEOUS ADIPOSE LAYER EXTENDING FROM THE LOWE R RIGHT FLANK TRACKING DOWN INFERIORLY OVERLYING THE SUPERIOR AND LATERAL ASPECTS OF THE RIGHT GLUTEA L MUSCULATURE MEASURING UP TO 14.6 CM WIDE AND OVER 13 CM CRANIOCAUDAL, EXTENDING DOWN TOWARDS THE PE LVIS BEYOND THE [id number]. QUERY ANY PREVIOUS PROCEDURE OR INJURY IN THIS LOCATION. A NEOPLASTIC ETIOLOGY IS NOT ENTIRELY EXCLUDED AT THIS TIME BUT IT DOES HAVE AN ATYPICAL APPEARANCE FOR NEOPLASM. CONSIDER INITIAL ASSESSMENT WITH TISSUE SAMPLING/ASPIRATION. 2. NONSPECIFIC 2.5 CM HYPODENSE LESION LOWER POLE RIGHT KIDNEY. RECOMMEND 3-6 MONTH FOLLOW-UP CT TO E NSURE STABILITY. 3. INCIDENTAL: HEPATOMEGALY AT 19.1 CM WITH MILD HEPATIC STEATOSIS. 4. INCIDENTAL: ASCENDING AORTIC ANEURYSM AT 4.3 CM IN POSSIBLE UNDERLYING PULMONARY HYPERTENSION.
== END | disposition home or self-care (01) ==
LOC: RADCTMAIN 13:32
PROVIDERS: ATTEND Surgery
DX: R22.2 Localized swelling, mass and lump, trunk (principal); N28.89 Other specified disorders of kidney and ureter
CPT/HCPCS: 71260; 74160; 82565; 84520

== ENCOUNTER → 2023-01-15 | Outpatient (CLI) | payer OTHER ==
--- NOTE | 2023-01-15 13:56 | XR ---
EXAMINATION TYPE: XR chest 2V DATE OF EXAM: 01/15/2023 COMPARISON: NONE TECHNIQUE: PA and lateral views submitted. HISTORY: fever FINDINGS: The lungs are clear and there is no pneumothorax, pleural effusion, or focal pneumonia. Heart size normal and no overt failure. Osseous structures demonstrate hypertrophic and degenerative changes of the spine. Bilateral AC joint arthropathy. IMPRESSION: 1. No acute process.
[2023-01-15 14:52] LABS: HCT 37.5 % (39.0-53.0); HGB 12.7 gm/dL (13.0-17.5); MCH 29.1 pg (25.0-35.0); MCHC 33.8 g/dL (31.0-37.0); MCV 86.1 fL (80.0-100.0); Mean Platelet Volume 7.8; Platelet Count 234 k/uL (150-450); RBC 4.36 m/uL (4.30-5.90); RDW 14.9 % (11.5-15.5); WBC 26.1 k/uL (3.8-10.6)
[2023-01-15 15:07] LABS: Color,Urine Light Orange
[2023-01-15 15:08] LABS: Appearance,Urine Clear (Clear); Bilirubin,Urine Negative (Negative); Blood,Urine Negative (Negative); Glucose,Urine (UA) Negative (Negative); Ketones,Urine Negative (Negative); PH, Urine 5.5 (5.0-8.0); Protein,Urine Trace (Negative); Specific Gravity,Urine 1.021 (1.001-1.035); Urobilinogen,Urine <2.0 mg/dL (<2.0)
[2023-01-15 15:09] LABS: Leukocyte Esterase,Urine Negative (Negative); Nitrite,Urine Negative (Negative)
[2023-01-15 15:12] LABS: Hyaline Casts,Urine 6 /lpf (0-2); Mucus,Urine Occasional /hpf; RBC,Urine <1 /hpf (0-5); Squamous Epithelial Cell,Urine <1 /hpf (0-4); WBC,Urine 3 /hpf (0-5)
== END | disposition home or self-care (01) ==
LOC: LABWHC1 13:24
PROVIDERS: ATTEND Family Medicine
DX: R50.82 Postprocedural fever (principal)
CPT/HCPCS: 36415; 71046; 81003; 85027

== ENCOUNTER 2023-01-17 13:18 | Emergency (ER) | payer OTHER ==
[2023-01-17 14:50] LABS: Basophils % (A) 0 %; Eosinophils # (A) 0.1 k/uL (0-0.7); Eosinophils % (A) 1 %; HCT 40.8 % (39.0-53.0); HGB 13.4 gm/dL (13.0-17.5); Lymphocytes # (A) 1.6 k/uL (1.0-4.8); Lymphocytes % (A) 11 %; MCH 28.4 pg (25.0-35.0); MCV 86.2 fL (80.0-100.0); Mean Platelet Volume 7.9; Monocytes # (A) 0.8 k/uL (0-1.0); Monocytes % (A) 6 %; Neutrophils # (A) 11.3 k/uL (1.3-7.7); Neutrophils % (A) 81 %; Platelet Count 279 k/uL (150-450); RBC 4.73 m/uL (4.30-5.90); RDW 14.4 % (11.5-15.5); WBC 13.8 k/uL (3.8-10.6)
[2023-01-17 14:59] LABS: ALT 21 U/L (4-49); AST 20 U/L (17-59); African American GFR (CKD) >90 (>60 ml/min/1.73 sqM); Albumin 3.9 g/dL (3.5-5.0); Alkaline Phosphatase 76 U/L (38-126); Anion Gap 13 mmol/L; Blood Urea Nitrogen 18 mg/dL (9-20); Calcium 9.5 mg/dL (8.4-10.2); Carbon Dioxide 25 mmol/L (22-30); Chloride 104 mmol/L (98-107); Glucose 164 mg/dL (74-99); Lipase 198 U/L (23-300); Non-African American GFR(CKD) >90 (>60 ml/min/1.73 sqM); Potassium 3.9 mmol/L (3.5-5.1); Sodium 142 mmol/L (137-145); Total Bilirubin 0.8 mg/dL (0.2-1.3); Total Protein 6.9 g/dL (6.3-8.2)
--- NOTE | 2023-01-17 15:00 | ED ---
Abdominal Pain HPI - General Chief Complaint: Abdominal Pain Stated Complaint: Infection Time Seen by Provider: 01/17/23 13:45 Source: patient, family, RN notes reviewed Mode of arrival: ambulatory Limitations: no limitations - History of Present Illness Initial Comments: 57-year-old male presents emergency Department with chief complaint of abdominal pain possible infection. Patient states that he had surgery 2 weeks ago at [facility]. Patient's old surgeon today was sent emergency from for CT of abdomen and pelvis. Patient states that he's had no reported either he states his been off the prescription payments since the weekend. He did have blood work 2 days ago which showed leukocytosis with a white count 26,000. Patient states he has to DARI drains in which they've been draining slightly bloody tinged for white puslike material - Related Data Home Medications Medication Instructions Recorded Confirmed Lisinopril-Hctz 20-25 mg 1 tab PO DAILY 02/15/15 07/15/22 [Zestoretic 20-25] allopurinoL [Zyloprim] 300 mg PO DAILY 02/20/22 07/15/22 amLODIPine [Norvasc] 10 mg PO DAILY 02/20/22 07/15/22 metFORMIN HCL 500 mg PO BID 02/20/22 07/15/22 Ascorbic Acid [Vitamin C] 1,000 mg PO DAILY 07/15/22 07/15/22 Cholecalciferol [Vitamin D3 (25 25 mcg PO DAILY 07/15/22 07/15/22 Mcg = 1000 Iu)] Dulaglutide [Trulicity] 3 mg SQ MO 07/15/22 07/15/22 Psyllium Husk [Metamucil] 0.8 gm PO DAILY 07/15/22 07/15/22 Zinc Gluconate [Zinc] 50 mg PO DAILY 07/15/22 07/15/22 fluocinolone acetonide oiL 1 applic BOTH EARS DAILY PRN 07/15/22 07/15/22 [Dermotic] Previous Rx's Medication Instructions Recorded Levofloxacin [Levaquin] 500 mg PO Q24H #7 tab 07/20/22 methylPREDNISolone Dose Pack 24 mg PO DAILY #1 pack 07/20/22 [Medrol Dose Pack] Allergies Allergy/AdvReac Type Severity Reaction Status Date / Time doxycycline Allergy Anaphylaxis Verified 01/17/23 13:33 Review of Systems ROS Statement: Those systems with pertinent positive or pertinent negative responses have been documented in the HPI. ROS Other: All systems not noted in ROS Statement are negative. Past Medical History Past Medical History: Diabetes Mellitus, Hypertension, Sleep Apnea/CPAP/BIPAP Additional Past Medical History / Comment(s): gout, morbid obesity, covid september of 2020/spent time in ICU on bipap. History of Any Multi-Drug Resistant Organisms: None Reported Past Surgical History: Orthopedic Surgery, Tonsillectomy Additional Past Surgical History / Comment(s): eye sx, deviated septum repair, right knee arthroscopic surgery, flank surgery Past Anesthesia/Blood Transfusion Reactions: No Reported Reaction Past Psychological History: No Psychological Hx Reported Smoking Status: Never smoker Past Alcohol Use History: Occasional Past Drug Use History: None Reported - Past Family History Sister(s) Family Medical History: Cancer Additional Family Medical History / Comment(s): colon Father Family Medical History: Cancer Additional Family Medical History / Comment(s): prostate General Exam Limitations: no limitations General appearance: alert, in no apparent distress Head exam: Present: atraumatic, normocephalic, normal inspection Eye exam: Present: normal appearance, PERRL, EOMI. Absent: scleral icterus, conjunctival injection, periorbital swelling ENT exam: Present: normal exam, mucous membranes moist Neck exam: Present: normal inspection. Absent: tenderness, meningismus, lymphad enopathy Respiratory exam: Present: normal lung sounds bilaterally. Absent: respiratory distress, wheezes, rales, rhonchi, stridor Cardiovascular Exam: Present: regular rate, normal rhythm, normal heart sounds. Absent: systolic murmur, diastolic murmur, rubs, gallop, clicks GI/Abdominal exam: Present: soft, tenderness, normal bowel sounds. Absent: distended, guarding, rebound, rigid Course Vital Signs 01/17/23 01/17/23 01/17/23 13:33 16:04 18:15 Temperature 98.3 F 100.9 F H 98.1 F Pulse Rate 83 81 71 Respiratory 24 18 18 Rate Blood Pressure 129/73 119/73 108/70 O2 Sat by Pulse 98 100 95 Oximetry Medical Decision Making - Medical Decision Making Was pt. sent in by a medical professional or institution (, PA, REPEATER CHIEF, urgent care, hospital, or fpc...) When possible be specific @ -[Patient's surgeon Did you speak to anyone other than the patient for history (EMS, parent, family, police, friend...)? What history was obtained from this source @ -No Did you review nursing and triage notes (agree or disagree)? Why? @ -I reviewed and agree with nursing and triage notes Were old charts reviewed (outside hosp., previous admission, EMS record, old E KG, old radiological studies, urgent care reports/EKG's, fpc records)? Report findings @ -Reviewed recent laboratory studies Differential Diagnosis (chest pain, altered mental status, abdominal pain women, abdominal pain men, vaginal bleeding, weakness, fever, dyspnea, syncope, headache, dizziness, GI bleed, back pain, seizure, CVA, palpatations, mental health, musculoskeletal)? @ -Differential Abdominal Pain Men: Appendicitis, cholecystitis, diverticulosis, ischemic bowel, pancreatitis, hepatitis, UTI, gastroenteritis, AAA, incarcerated hernia, bowel obstruction, constipation, inflammatory bowel, hepatitis, peptic ulcer disease, splenic infarction, perforated viscus, testicular torsion, this is not meant to be an all-inclusive list EKG interpreted by me (3pts min.). @ -None X-rays interpreted by me (1pt min.). @ -None done CT interpreted by me (1pt min.). @ -CT and pelvis showing evidence of fluid collection on the right with fat stranding extends down to the right groin U/S interpreted by me (1pt. min.). @ -None done What testing was considered but not performed or refused? (CT, X-rays, U/S, labs)? Why? @ -None What meds were considered but not given or refused? Why? @ -None Did you discuss the management of the patient with other professionals (professionals i.e. , PA, REPEATER CHIEF, lab, RT, psych nurse, social work manager, ferryboat pilot, teacher, aoc director intelligence officer, therapeutic case manager)? Give summary @ -I did discuss the case with patient's surgeon Dr. Bates who recommends patient be admitted for IV antibiotics. I did discuss case with Keila Bruce for transfer Was smoking cessation discussed for >3mins.? @ -No Was critical care preformed (if so, how long)? @ -No Were there social determinants of health that impacted care today? How? (Homelessness, low income, unemployed, alcoholism, drug addiction, transportation, low edu. Level, literacy, decrease access to med. care, intermediate, rehab)? @ -No Was there de-escalation of care discussed even if they declined (Discuss DNR or withdrawal of care, Hospice)? DNR status @ -No What co-morbidities impacted this encounter? (DM, HTN, Smoking, COPD, CAD, Cancer, CVA, ARF, Chemo, Hep., AIDS, mental health diagnosis, sleep apnea, morbid obesity)? @ -None Was patient admitted / discharged? Hospital course, mention meds given and route, prescriptions, significant lab abnormalities, going to OR and other [facility] info. @ -Transferred patient will be transferred to [facility] secondary to postsurgical infection, possible early abscess, persistent fevers and leukocytosis. Undiagnosed new problem with uncertain prognosis? @ -No Drug Therapy requiring intensive monitoring for toxicity (Heparin, Nitro, Insulin, Cardizem)? @ -No Were any procedures done? @ -No Diagnosis/symptom? @ -Postoperative fluid collection, infection Acute, or Chronic, or Acute on Chronic? @ -Acute Uncomplicated (without systemic symptoms) or Complicated (systemic symptoms)? @ -Complicated Side effects of treatment? @ -No Exacerbation, Progression, or Severe Exacerbation? @ -No Poses a threat to life or bodily function? How? (Chest pain, USA, CT, pneumonia, PE, COPD, DKA, ARF, appy, cholecystitis, CVA, Diverticulitis, Homicidal, Suicidal, threat to staff... and all critical care pts) @ -[Yes intra-abdominal infection - Lab Data Result diagrams: 01/17/23 14:26 01/17/23 14:26 Lab Results 01/17/23 01/17/23 01/17/23 Range/Units 14:26 14:26 14:26 WBC 13.8 H (3.8-10.6) k/uL RBC 4.73 (4.30-5.90) m/uL Hgb 13.4 (13.0-17.5) gm/dL Hct 40.8 (39.0-53.0) % MCV 86.2 (80.0-100.0) fL MCH 28.4 (25.0-35.0) pg MCHC 33.0 (31.0-37.0) g/dL RDW 14.4 (11.5-15.5) % Plt Count 279 (150-450) k/uL MPV 7.9 Neutrophils % 81 % Lymphocytes % 11 % Monocytes % 6 % Eosinophils % 1 % Basophils % 0 % Neutrophils # 11.3 H (1.3-7.7) k/uL Lymphocytes # 1.6 (1.0-4.8) k/uL Monocytes # 0.8 (0-1.0) k/uL Eosinophils # 0.1 (0-0.7) k/uL Basophils # 0.0 (0-0.2) k/uL ESR (0-20) mm/Hr Sodium 142 (137-145) mmol/L Potassium 3.9 (3.5-5.1) mmol/L Chloride 104 (98-107) mmol/L Carbon Dioxide 25 (22-30) mmol/L Anion Gap 13 mmol/L BUN 18 (9-20) mg/dL Creatinine 0.87 (0.66-1.25) mg/dL Est GFR (CKD-EPI)AfAm >90 (>60 ml/min/1.73 sqM) Est GFR (CKD-EPI)NonAf >90 (>60 ml/min/1.73 sqM) Glucose 164 H (74-99) mg/dL Plasma Lactic Acid Santos 1.6 (0.7-2.0) mmol/L Calcium 9.5 (8.4-10.2) mg/dL Total Bilirubin 0.8 (0.2-1.3) mg/dL AST 20 (17-59) U/L ALT 21 (4-49) U/L Alkaline Phosphatase 76 (38-126) U/L C-Reactive Protein (<1.0) mg/dL Total Protein 6.9 (6.3-8.2) g/dL Albumin 3.9 (3.5-5.0) g/dL Lipase 198 (23-300) U/L 01/17/23 01/17/23 Range/Units 14:26 14:26 WBC (3.8-10.6) k/uL RBC (4.30-5.90) m/uL Hgb (13.0-17.5) gm/dL Hct (39.0-53.0) % MCV (80.0-100.0) fL MCH (25.0-35.0) pg MCHC (31.0-37.0) g/dL RDW (11.5-15.5) % Plt Count (150-450) k/uL MPV Neutrophils % % Lymphocytes % % Monocytes % % Eosinophils % % Basophils % % Neutrophils # (1.3-7.7) k/uL Lymphocytes # (1.0-4.8) k/uL Monocytes # (0-1.0) k/uL Eosinophils # (0-0.7) k/uL Basophils # (0-0.2) k/uL ESR 85 H (0-20) mm/Hr Sodium (137-145) mmol/L Potassium (3.5-5.1) mmol/L Chloride (98-107) mmol/L Carbon Dioxide (22-30) mmol/L Anion Gap mmol/L BUN (9-20) mg/dL Creatinine (0.66-1.25) mg/dL Est GFR (CKD-EPI)AfAm (>60 ml/min/1.73 sqM) Est GFR (CKD-EPI)NonAf (>60 ml/min/1.73 sqM) Glucose (74-99) mg/dL Plasma Lactic Acid Santos (0.7-2.0) mmol/L Calcium (8.4-10.2) mg/dL Total Bilirubin (0.2-1.3) mg/dL AST (17-59) U/L ALT (4-49) U/L Alkaline Phosphatase (38-126) U/L C-Reactive Protein 16.2 H (<1.0) mg/dL Total Protein (6.3-8.2) g/dL Albumin (3.5-5.0) g/dL Lipase (23-300) U/L Disposition Clinical Impression: Postoperative abdominal pain, Postoperative infection Disposition: OTHER INSTITUTION NOT DEFINED Referrals: Jose Luis Garcia MD [Primary Care Provider] - 1-2 days Time of Disposition: 16:46 - Out of Hospital Transfer - Req. Specs Out of Hospital Transfer - Requested Specifics: Other Emergency Center ([facility])
[2023-01-17] MEDS ORDERED: HYDROmorphone 0.5 MG/0.5 ML SYRINGE IVP STA ×2 (15:39→18:03)
[2023-01-17] MEDS ORDERED: ONDANSETRON 4 MG/2 ML VIAL IVP STA (15:39)
--- NOTE | 2023-01-17 15:56 | CT ---
EXAMINATION TYPE: CT abdomen pelvis w con DATE OF EXAM: 01/17/2023 COMPARISON: CT abdomen November 30, 2022 HISTORY: Pt presents with abdominal pain infection. Pt is 15 days post Op from and abdominal surgery which was a 14cm mass, and hernia repair. Pt has had fever since Jorge Luis. Pt is complaining of right g roin burning sensation, right flank into the buttocks region. CT DLP: 4373.4 mGycm, Automated Exposure Control for Dose Reduction was Utilized. CONTRAST: CT scan of the abdomen and pelvis is performed without oral and with IV Contrast, patient injected wi th 100 ml mL of Isovue 300. FINDINGS: LUNG BASES: No significant abnormality is appreciated. LIVER/GB: Liver is heterogeneously hypodense consistent with diffuse fatty infiltration. Contracted g allbladder is seen on current study. PANCREAS: No significant abnormality is seen. SPLEEN: No significant abnormality is seen. ADRENALS: No significant abnormality is seen. KIDNEYS: Roughly 1 cm thin-walled cyst medial lower pole right kidney is redemonstrated. BOWEL: No abnormal small or large bowel dilatation. PROSTATE/SEMINAL VESICLES: Prostate gland is normal in size. Scattered right-sided pelvic phleboliths are seen. LYMPH NODES: No greater than 1cm abdominal or pelvic lymph nodes are appreciated. OSSEOUS STRUCTURES: Multilevel spurring in the thoracolumbar spine. Disc space narrowing lumbosacral junction redemonstrated. OTHER: There is percutaneous drainage catheter terminating in the posterior right superior gluteal re gion. There is ill-defined fluid and fat stranding in the right thigh region partially imaged. There is more focal fluid in the deep soft tissue surrounding the right gluteal muscles partially imaged. S ome deep subcutaneous gas is noted. IMPRESSION: Partial visualization of ill-defined fluid and fat stranding in the right thigh with perc utaneous drainage catheter. There is some more focal fluid noted. Findings could reflect product of r ecent surgery but underlying infection at this level needs to be considered given patient history. No suspicious new findings within the abdomen or pelvis noted.
[2023-01-17] MEDS ORDERED: ACETAMINOPHEN TAB 325 MG TAB PO STA (16:12)
[2023-01-17 16:13] VITALS: RESP 18
[2023-01-17] MEDS ORDERED: PIPERACILLIN-TAZOBACTAM 3.375 GM in SODIUM CHLORIDE 0.9% 100 ML IVPB STA (16:35)
[2023-01-17 18:26] VITALS: BP 108/70; PULSE 71; TEMP 98.1
== END 2023-01-17 18:20 | disposition other institution (70) ==
LOC: EC 13:18
DX: T81.49XA Infection following a procedure, other surgical site, initial encounter (principal); I10 Essential (primary) hypertension; E11.9 Type 2 diabetes mellitus without complications; E66.01 Morbid (severe) obesity due to excess calories; G47.30 Sleep apnea, unspecified; Z79.84 Long term (current) use of oral hypoglycemic drugs; Z79.899 Other long term (current) drug therapy; Z86.16 Personal history of COVID-19; Z88.8 Allergy status to other drugs, medicaments and biological substances
CPT/HCPCS: 36415; 80053; 85652; 83605; 83690; 85025; 86140; 87040; 74177; 99285; 96365; 96375; 96376; J2543; J2405; J1170; Q9967

== ENCOUNTER → 2024-04-28 | Outpatient (CLI) | payer OTHER ==
[2024-04-28 14:35] VITALS: BP 143/81; PULSE 69; RESP 18; TEMP 97.8
--- NOTE | 2024-04-28 19:01 | P.PN ---
Progress Note - Text Progress Note Date: 04/28/24 This is a 59-year-old male patient with known history of severe obstructive sleep apnea with an AHI of 117 was, again for a compliancy check. The patient was able to obtain a new generation ResMed 11 hide this is his first visit to check on his machine and do a compliancy check. The patient is doing well with his current CPAP machine. This new machine is set at a pressure of 6/14 cm of water, APAP mode. The patient is also using a large size Lilo view fullface mask. He remains extremely compliant and he reports good clinical response to CPAP therapy. Based on the compliance data collected on his machine between 03/29/2024 and 04/27/2024, the patient is used the machine more than 4 hours 100% of the time and he has used the machine every night without any interruptions. He has been averaging around 8 hours and 8 minutes of CPAP use per night and his 95th percentile pressures is at 13.3 cm of water and it is leak is in the order of 8 L/min. His AHI is down to 1.1. The patient wants to increase his starting pressure which is currently at 4 cm of water. He has a automatic ramp time. At the same time, his climate line is set at automatic humidity control. He is doing well. No snoring while on treatment. No hypersomnia or sleepiness during the day. No cardiovascular complications since his last visit and his Winigan score is at 2 with a pulse ox of 94% on room air oxygen. Review of system. 12 point review of system was done and is essentially negative other than things mentioned above in history of present illness Medications include Norvasc 10 mg p.o. daily, lisinopril hydrochlorothiazide 20/25 1 tablet a day, metformin 500 mg twice daily, Mounjaro on a weekly basis 10 mg and Crestor 10 mg p.o. daily and methocarbamol 750 mg p.o. on a as needed basis. Vitals show a blood pressure of 143/81, pulse of 69, respirations 18 and his weight is 329 pounds with an oxygen saturation of 94% General Appearance morbidly obese,, comfortable, nonacute distress The patient appeared well nourished and normally developed. Vital signs as documented. Head exam is unremarkable. No scleral icterus or corneal arcus noted. Neck is without jugular venous distension, thyromegaly, or carotid bruits. Carotid upstrokes are brisk bilaterally. Lungs are clear to auscultation and percussion. Cardiac exam reveals the PMI to be normally sized and situated. Rhythm is regular. First and second heart sounds normal. No murmurs, rubs or gallops. Abdominal exam reveals normal bowel sounds, no masses, no organomegaly and no aortic enlargement. Extremities are nonedematous and both femoral and pedal pulses are normal. Examination of the skin revealed no evidence of significant rashes, suspicious appearing nevi or other concerning lesions. Neurologically, the patient is awake and alert and the patient does not have any focal neurological deficit. Cranial nerves are essentially intact. Assessment Severe symptomatic HERON with an AHI of 117. The patient continues to undergo successful CPAP therapy, APAP mode. Morbid obesity with a body mass index of 49 Hypersomnia, improved with CPAP therapy Diabetes mellitus type 2, currently on Mounjaro Hyperlipidemia maintained on statins Plan Continue CPAP therapy at an APAP mode pressures of 6/14 cm of water. Adjust the starting pressure to 5 cm of water Activate smart start and smart stop features of the CPAP machine Humidity control automatic Patient has a climate line Encourage weight loss Treatment is successful and the patient meets insurance status for compliancy. He is committed to long-term CPAP therapy Keep same mask interface and the patient has a Lilo view fullface mask large size See me back in a years time in follow-up.
== END ==
LOC: 3 N SLEEP 14:03
PROVIDERS: ATTEND Internal Medicine Critical Care Medicine
DX: E11.9 Type 2 diabetes mellitus without complications (principal); G47.33 Obstructive sleep apnea (adult) (pediatric); E66.01 Morbid (severe) obesity due to excess calories; G47.10 Hypersomnia, unspecified; E78.5 Hyperlipidemia, unspecified; Z68.42 Body mass index [BMI] 45.0-49.9, adult; Z99.89 Dependence on other enabling machines and devices; Z79.4 Long term (current) use of insulin; Z88.1 Allergy status to other antibiotic agents
CPT/HCPCS: 99212